=== PATIENT | female | born 1975 | race Caucasian/White ===

== ENCOUNTER → 2019-01-17 12:45 | Outpatient (CLI) | payer OTHER, SELFPAY ==
--- NOTE | 2019-01-17 | DI.MG.S_ITS ---
BILATERAL DIGITAL SCREENING MAMMOGRAM 3D/2D WITH CAD: 01/17/2019 CLINICAL: Routine screening. Family history of breast cancer. Comparison is made to exam dated: 12/14/2017 mammogram - [facility]. The tissue of both breasts is heterogeneously dense. This may lower the sensitivity of mammography. Current study was also evaluated with a Computer Aided Detection (CAD) system. There is a mole marker on the left breast. No significant masses, calcifications, or other findings are seen in either breast. There has been no significant interval change. IMPRESSION: NEGATIVE There is no mammographic evidence of malignancy. A 1 year screening mammogram is recommended. This exam was interpreted at Station ID: [id number]. NOTE: For mammograms, a report in lay terms will be sent to the patient. Approximately 15% of breast malignancies will not be visualized mammographically. In the management of a palpable breast mass, a negative mammogram must not discourage biopsy of a clinically suspicious lesion. Electronically Signed By: Jose Raul freedman/rajinder:01/17/2019 17:22:00 letter sent: Normal Exam ACR BI-RADS Category 1: Negative 3341F
== END ==
DX: Z12.31 Encounter for screening mammogram for malignant neoplasm of breast (principal); Z80.3 Family history of malignant neoplasm of breast
CPT/HCPCS: 77063; 77067

== ENCOUNTER → 2019-05-27 16:30 | Outpatient (CLI) | payer OTHER, SELFPAY ==
[2019-05-27 18:59] LABS: Follicle Stimulating Hormone 7.12 mIU/mL
[2019-05-27 19:14] LABS: Estradiol, Total 129.7 pg/mL
[2019-05-30 17:02] LABS: Testosterone Free 3.1 pg/mL (0.1-6.4); Testosterone Total 72 ng/dL (2-45)
== END ==
DX: N92.1 Excessive and frequent menstruation with irregular cycle (principal)
CPT/HCPCS: 36415; 82670; 83001; 83002; 84402; 84403

== ENCOUNTER → 2020-08-10 11:59 | Outpatient (CLI) | payer OTHER, SELFPAY ==
--- NOTE | 2020-08-10 12:00 | DI.MG.S_ITS ---
BILATERAL DIGITAL SCREENING MAMMOGRAM 3D/2D WITH CAD: 08/10/2020 CLINICAL: Routine screening. Family history of breast cancer. Comparison is made to exams dated: 01/17/2019 mammogram and 12/14/2017 mammogram - [facility]. The tissue of both breasts is heterogeneously dense. This may lower the sensitivity of mammography. Current study was also evaluated with a Computer Aided Detection (CAD) system. There is a mole marker on the left breast. No significant masses, calcifications, or other findings are seen in either breast. There has been no significant interval change. IMPRESSION: NEGATIVE There is no mammographic evidence of malignancy. A 1 year screening mammogram is recommended. This exam was interpreted at Station ID: [id number]. NOTE: For mammograms, a report in lay terms will be sent to the patient. Approximately 15% of breast malignancies will not be visualized mammographically. In the management of a palpable breast mass, a negative mammogram must not discourage biopsy of a clinically suspicious lesion. Electronically Signed By: Po Garcia acr/rajinder:08/10/2020 17:01:38 copy to: Helena Neal letter sent: Normal Exam ACR BI-RADS Category 1: Negative [id number]
== END ==
PROVIDERS: PCP Family Medicine; Referring Provider Family Medicine; Visit Provider Family Medicine
DX: Z12.31 Encounter for screening mammogram for malignant neoplasm of breast (principal); Z80.3 Family history of malignant neoplasm of breast
CPT/HCPCS: 77063; 77067

== ENCOUNTER 2021-11-13 01:24 | Inpatient (IN) | payer SELFPAY ==
[2021-11-13] VITALS (19 sets, daily range): BP systolic 140–188; BP diastolic 73–111; PULSE 89–113; RESP 12–27; TEMP 36.6–37.2; O2SAT 97–100; BMI 20.7
--- NOTE | 2021-11-13 01:38 | DI.RAD.S_ITS ---
PROCEDURE: XR CHEST 1V INDICATIONS: Vomiting blood TECHNIQUE: One view of the chest was acquired. COMPARISON: None. FINDINGS: Surgical changes and devices: None. Lungs and pleura: Lungs are clear. No pleural effusions or pneumothorax. Mediastinum: Mediastinal contours appear normal. Heart size is normal. Bones and chest wall: No suspicious bony lesions. Overlying soft tissues appear unremarkable. IMPRESSION: Normal for age, source of current hematemesis symptoms is not seen. Dictated by: Jim Dominguez M.D. on 11/13/2021 at 1:53 Approved by: Jim Dominguez M.D. on 11/13/2021 at 1:53
[2021-11-13 01:51] LABS: Add Manual Diff / Slide Review NO; Basophils Absolute Auto 0 /uL (0-100); Basophils Percent Auto 0.4 % (0-2); Eosinophils Absolute Auto 0 /uL (0-450); Hematocrit 47.1 % (36-46); Hemoglobin 15.6 g/dL (12.0-16.0); Lymphocytes Absolute Auto 600 /uL (1100-4500); Lymphocytes Percent Auto 9.2 % (25-40); Mean Corpuscular HGB Conc 33.1 % (30-36); Mean Corpuscular Hemoglobin 35.9 PG (26-34); Mean Corpuscular Volume 108.6 fL (80-100); Monocytes Absolute Auto 600 /uL (0-900); Monocytes Percent Auto 8.8 % (3-14); Neutrophils Absolute Auto 5600 /uL (1500-7000); Neutrophils Percent Auto 81.6 % (50-75); Platelet Count 135 X10^3/uL (150-400); Red Blood Cell Count 4.33 X10^6/uL (4.0-5.2); Red Cell Distribution Width 14.6 % (11.6-14.8); White Blood Cell Count 6.9 X10^3/uL (4.5-11.0)
[2021-11-13] MEDS: SODIUM CHLORIDE 0.9% 1,000 ML 1000 ML IV (01:54)
[2021-11-13] MEDS: PANTOPRAZOLE 40 MG VIAL IV ×2 (01:54→08:46)
[2021-11-13] MEDS: ONDANSETRON 4 MG/2 ML INJ IV ×5 (01:55→20:18)
[2021-11-13 02:04] LABS: Alanine Aminotransferase 64 IU/L (<35); Albumin 4.7 g/dL (3.5-5.0); Albumin Globulin Ratio 1.2 (1.0-2.8); Alkaline Phosphatase 117 U/L (38-126); Aspartate Aminotransferase 370 IU/L (14-36); BUN Creatinine Ratio 6.7 (6-22); Bilirubin Total 1.8 mg/dL (0.2-1.3); Blood Urea Nitrogen 4 mg/dL (7-17); Calcium 8.9 mg/dL (8.4-10.2); Carbon Dioxide 12 mmol/L (22-32); Chloride 102 mmol/L (98-107); Estimated Glomerular Filt Rate > 60.0 mL/min (>60); Ethanol (ETOH) < 10 mg/dL; Globulin 3.8 g/dL (1.7-4.1); Glucose 108 mg/dL (70-100); Sodium 135 mmol/L (137-145); Total Protein 8.5 g/dL (6.3-8.2)
--- NOTE | 2021-11-13 02:05 | ED_ITS ---
HPI - Nausea/Vomiting/Diarrhea General Chief complaint: Nausea/Vomiting/Diarrhea Stated complaint: BLOOD IN VOMIT/WEAK/HEART RACING Time Seen by Provider: 11/13/21 01:36 Source: patient Mode of arrival: Wheelchair Limitations: no limitations History of Present Illness HPI Narrative: Patient is a 46-year-old female. Has a history of hypertension but states she does not take any of her medications. Is a msr-ipfbypk-bhkasrplu diabetic. Here for evaluation of just over 12 hours of upper abdominal discomfort and nausea and vomiting. No fevers but is having chills. Is feeling very weak. Having upper abdominal pain. No urinary symptoms. No change in bowel habits. She stated that the vomit did turn into having some blood streaked and then turned into some dark colored. She does have a fairly significant alcohol history. Drinks on a daily basis but did not drink at all yesterday because of the symptoms that brought her to the emergency department. Related Data Home Medications Medication Instructions Recorded Confirmed spironolactone 100 mg tablet 100 mg PO BID 08/11/20 11/02/20 Previous Rx's Medication Instructions Recorded amlodipine 5 mg tablet See Rx Instructions .ROUTE 09/15/20 .COMPLEX #30 tab levonorgestrel-ethinyl estradiol 1 tab PO DAILY #84 tab 09/21/20 0.1 mg-20 mcg tablet (Aviane) metformin 500 mg tablet,extended 500 mg PO DAILY #30 tab 10/01/20 release 24 hr metoprolol succinate 100 mg See Rx Instructions .ROUTE 01/06/21 tablet,extended release 24 hr .COMPLEX #90 tab Allergies Allergy/AdvReac Type Severity Reaction Status Date / Time No Known Drug Allergies Allergy Verified 11/02/20 10:39 Review of Systems Constitutional Constitutional: Reports as per HPI and Reports system reviewed and no additional complaints, except as documented Cardiovascular Cardiovascular: Reports system reviewed and no additional complaints, except as documented Respiratory Respiratory: Reports system reviewed and no additional complaints, except as documented Gastrointestinal Gastrointestinal: Reports as per HPI and Reports system reviewed and no additional complaints, except as documented Genitourinary Genitourinary: Reports system reviewed and no additional complaints, except as documented and Reports as per HPI Musculoskeletal Musculoskeletal: Reports system reviewed and no additional complaints, except as documented Integumentary/Breasts Skin/Breast: Reports system reviewed and no additional complaints, except as documented Hematologic/Lymphatic On Anticoagulants: No Patient History Medical History Acne Hyperlipidemia Infertility Polycystic ovarian syndrome Surgical History Anesthesia Status post delivery (~11/03/13) Status post surgical removal of both fallopian tubes (~2011) Family History Mother Hyperlipidemia Hypertension Father Cancer Social History Smoking Status: Current every day smoker Smoking Status: Current every day smoker alcohol intake frequency: 3 or more drinks per day Substance Use Type: does not use Exam Initial Vital Signs Initial Vital Signs: Vital Signs Temperature 98.1 F 11/13/21 01:30 Pulse Rate 103 H 11/13/21 01:30 Respiratory Rate 18 11/13/21 01:30 Blood Pressure 188/111 H 11/13/21 01:30 Pulse Oximetry 99 11/13/21 01:30 HENMT Head: normal to inspection and normocephalic Resp Effort & Inspection: normal respiratory effort Auscultation: clear to auscultation bilaterally Cardio Rate: regular rate Rhythm: regular rhythm GI Inspection: normal to inspection and non-distended Palpation: soft, No firm and tender (Epigastric, left upper quadrant) Skin General: no rashes or lesions noted Extrem General: normal to inspection and capillary refill normal Course Orders Ordered: ED Orders 11/13/21 01:38 XR chest 1V Stat 11/13/21 01:40 Complete Blood Count AUTO DIFF Stat Comprehensive Metabolic Panel Stat Ethanol (ETOH) Stat Lipase Stat 11/13/21 01:51 Type and Screen Stat 11/13/21 02:35 COVID19 -Nasal swab/Pre-Proc Stat Discontinued Medications Sodium Chloride (Normal Saline 0.9%) 1,000 mls @ 1,000 mls/hr IV BOLUS ONE Stop: 11/13/21 02:35 Last Admin: 11/13/21 01:54 Dose: 1,000 mls/hr Documented by: NAYE Ondansetron HCl (Ondansetron 4 Mg/2 Ml Inj) 4 mg IV NOW ONE Stop: 11/13/21 01:37 Last Admin: 11/13/21 01:55 Dose: 4 mg Documented by: NAYE Pantoprazole Sodium (Pantoprazole 40 Mg Vial) 40 mg IV NOW ONE Stop: 11/13/21 01:37 Last Admin: 11/13/21 01:54 Dose: 40 mg Documented by: NAYE Vital Signs Vital signs: Vital Signs - 8 hr 11/13/21 01:30 Temperature 98.1 F Pulse Rate 103 H Respiratory Rate 18 Blood Pressure 188/111 H Pulse Oximetry 99 MDM - Nausea/Vomiting/Diarrhea Lab Data Attestation: I reviewed the patient's lab results. Result diagrams: 11/13/21 01:40 11/13/21 01:40 Labs: Lab Results 11/13/21 11/13/21 11/13/21 Range/Units 01:40 01:40 01:51 WBC 6.9 (4.5-11.0) X10^3/uL RBC 4.33 (4.0-5.2) X10^6/uL Hgb 15.6 (12.0-16.0) g/dL Hct 47.1 H (36-46) % MCV 108.6 H (80-100) fL MCH 35.9 H (26-34) PG MCHC 33.1 (30-36) % RDW 14.6 (11.6-14.8) % Plt Count 135 L (150-400) X10^3/uL Neut % (Auto) 81.6 H (50-75) % Lymph % (Auto) 9.2 L (25-40) % [place] % (Auto) 8.8 (3-14) % Eos % (Auto) 0.0 L (2-4) % Baso % (Auto) 0.4 (0-2) % Neut # (Auto) 5600 (9332-4913) /uL Lymph # (Auto) 600 L (4897-6056) /uL [place] # (Auto) 600 (0-900) /uL Eos # (Auto) 0 (0-450) /uL Baso # (Auto) 0 (0-100) /uL Sodium 135 L (137-145) mmol/L Potassium 4.7 (3.4-5.1) mmol/L Chloride 102 (98-107) mmol/L Carbon Dioxide 12 L (22-32) mmol/L BUN 4 L (7-17) mg/dL Creatinine 0.60 (0.52-1.04) mg/dL Estimated GFR > 60.0 (>60) mL/min BUN/Creatinine Ratio 6.7 (6-22) Glucose 108 H (70-100) mg/dL Calcium 8.9 (8.4-10.2) mg/dL Total Bilirubin 1.8 H (0.2-1.3) mg/dL AST 370 H (14-36) IU/L ALT 64 H (<35) IU/L Alkaline Phosphatase 117 (38-126) U/L Total Protein 8.5 H (6.3-8.2) g/dL Albumin 4.7 (3.5-5.0) g/dL Globulin 3.8 (1.7-4.1) g/dL Albumin/Globulin Ratio 1.2 (1.0-2.8) Lipase 4463 H (23-300) U/L Ethyl Alcohol < 10 ( - 10) mg/dL Blood Type O Positive Antibody Screen Negative [facility] Narrative Medical decision making narrative: Patient is nontoxic appearing. Is not tachycardic but is hypertensive. Alcohol level is negative. Does have an elevated lipase consistent with pancreatitis. She also has elevation in her LFTs but her discomfort is epigastric and left upper quadrant. Higher suspicion that the elevation in her LFTs related to al cohol. I suspect that the blood streaked sputum and dark colored sputum that she had is most likely related to gastritis/esophagitis. Patient was given Protonix. Started on fluids. Discussed the case with FRANCISCO Solis the night hospitalist who will admit for further evaluation and treatment. Discussed the need for admission secondary to pancreatitis with the patient and she expressed understanding and agreement. Discharge Plan Departure Patient Disposition: Admitted As Inpatient Clinical Impression: Acute pancreatitis, Nausea and vomiting Admit Date/Time: 11/13/21 02:45
[2021-11-13 02:07] LABS: Potassium 4.7 mmol/L (3.4-5.1)
[2021-11-13 02:18] LABS: HEMOLYSIS 77 (0-50); Lipase 4463 U/L (23-300)
[2021-11-13] MEDS: MAG HYDROX/ALUMINUM/SIMETH SUS 20 ML, LIDOCAINE VISCOUS 2% 15 ML PO ×2 (03:04→05:42)
--- NOTE | 2021-11-13 03:07 | DI.US.S_ITS ---
PROCEDURE: US ABDOMEN COMPLETE INDICATIONS: ACUTE PANCREATITIS TECHNIQUE: Real-time scanning was performed of the abdominal and retroperitoneal organs, with image documentation. COMPARISON: None. FINDINGS: Liver: Diffuse increased echogenicity is consistent with fatty change or hepatocellular disease. Gallbladder: No stones. No gallbladder wall thickening or pain on examination. Biliary ducts: Intrahepatic bile ducts are non-dilated. Extrahepatic bile duct caliber measures 5.1 mm. Normal is 6-7 mm or less in diameter, or 10 mm or less post-cholecystectomy. Pancreas: Visualized portions of the pancreas appear enlarged, possibly edematous, consistent with a clinical diagnosis of pancreatitis. Spleen: Spleen is normal in size and homogeneous in echotexture. Kidneys: Kidneys are normal in size and echotexture. Right kidney measures 12.0 cm long; left kidney measures 11.9 cm long. No hydronephrosis or nephrolithiasis. No solid masses. Aorta: Visualized aorta is normal in caliber at less than 3 cm. Iliacs: Proximal common iliac arteries are normal in caliber at less than 2.5 cm. IVC: Intrahepatic inferior vena cava is patent. Miscellaneous: Small amount of free fluid. IMPRESSION: 1. Coarsened echogenicity of the liver is consistent with either diffuse hepatic steatosis or hepatocellular disease. 2. No gallstone disease noted. 3. Probable edematous pancreas. 4. Small amount of ascites. Dictated by: Efren Hylton M.D. on 11/13/2021 at 15:13 Approved by: Efren Hylton M.D. on 11/13/2021 at 15:16
[2021-11-13 03:26] LABS: COVID19 -Nasal RAPID Negative (Negative)
[2021-11-13 03:36] LABS: Amylase 278 U/L (30-110); Lactate Dehydrogenase 876 U/L (313-618)
[2021-11-13 03:37] LABS: Magnesium 1.4 mg/dL (1.6-2.3)
--- NOTE | 2021-11-13 04:03 | PM.HP.1 ---
History of Present Illness History of Present Illness Date Patient Seen: 11/13/21 Time Patient Seen: 03:21 Chief complaint: BLOOD IN VOMIT/WEAK/HEART RACING Narrative: Harriet Smith is a 46-year-old female with a history of hypertension but states she does not take any of her medications, rte-rfdvzkl-lhfnxqfcn diabetic, and etoh abuse who presented to ED with a chief complaint of over 12 hours of upper epigastric/abdominal discomfort, nausea, vomiting (gross coffee grounds emesis/picture provided), and dark tarry stool x1.? No fevers but positive chills, epigatric pain, nausea, and weakness.?Though symptoms are improved from ED treatment. Patient denies urinary symptoms, chest pain, shortness of breath, numbness, tingling, headache, changes in vision, head injury, falls, recent illness, injury, or trauma. Patient also endorses a significant alcohol history (review of 2019 [facility] visit documented 12-15 shots per day and attempts at cutting back) admits to likely more this amount of vodka, shots QDay 15-20shots. Patient denies history of GI bleed. Patient resting in bed, chronically ill appearing. Upon admit patient's vitals demonstrated afebrile 98.1 temp, hypertensive urgency BP 188/111, tachycardic HR 103, R 18, O2 saturation 99% on room air. Patient's hematocrit 47.1, platelets 135. Sodium 135, bicarb 12, BUN 4, glucose 108. Mag 1.4, T bili 1.8, AST 370, ALT 64, total protein 8.5, LacD 876, amylase 278, lipase 4463, ETOH is negative. Patient typed & screened: O-positive. Chest x-ray was negative for any a cardiopulmonary processes. Patient being admitted for acute pancreatitis with mild thrombocytopenia, and alcohol abuse. Patient History Medical History (Updated 11/13/21 @ 04:13 by JOSE Rosen) Acne Alcohol abuse Hyperlipidemia Infertility Polycystic ovarian syndrome Surgical History Anesthesia Status post delivery (~11/03/13) Status post surgical removal of both fallopian tubes (~2011) Family & Social History Family History Mother Hyperlipidemia Hypertension Father Cancer Safety & Behavioral: Feels Safe in Current Yes Environment Tobacco & Substance use: Smoking Status Current every day smoker alcohol intake frequency 3 or more drinks per day Substance Use Type does not use Meds Home Medications and Allergies Allergies Allergy/AdvReac Type Severity Reaction Status Date / Time No Known Drug Allergies Allergy Verified 11/02/20 10:39 Review of Systems Review of Systems Narrative: All 12 point systems reviewed with the patient and are negative except otherwise documented. Exam Vital Signs (past 8 hours): - 11/13/21 01:30 11/13/21 01:57 11/13/21 01:59 Temperature 98.1 F Pulse Rate 103 H 98 H 109 H Respiratory Rate 18 27 H Blood Pressure 188/111 H 170/97 H Pulse Oximetry 99 100 100 11/13/21 02:00 11/13/21 02:30 11/13/21 03:00 Temperature Pulse Rate 113 H 104 H 96 H Respiratory Rate 26 H 22 23 Blood Pressure 179/94 H 147/83 H 165/79 H Pulse Oximetry 100 100 100 Oxygen Delivery Method Room Air Narrative Exam Narrative: General: Patient is a well-developed, well-nourished, chronically ill appearing female, in no acute distress at this time. HEENT: Normocephalic, atraumatic, extraocular muscles intact, oral pharynx is clear and mucous membranes are dry. Neck is supple and symmetric, trachea is midline, no adenopathy, no thyroid enlargement, nontender, no masses palpated. Negative for JVD Chest: Normal AP diameter and contour without kyphoscoliosis, no nasal flaring, retractions, or tachypneic labored breathing. Lungs: Auscultation of all lung sykes are clear without adventitious sounds, wheezes, rhonchi, or rales. Cardio: S1 & S2 with regular rate and rhythm without murmur, rubs, or gallops, no carotid bruit, no cardiac pulsations present. Abdomen: Soft, tender to epigatric w/palpation. Bowel sounds are present in all 4 quadrants without guarding or rebound, no CVA tenderness.Negative Hernández rosario, [place] or [place] signs. Musculoskeletal: Muscle strength and tone are equal within normal limits, no deformity, crepitus, effusions, cyanosis, clubbing or edema present. Full range of motion intact radial and pedal pulses are normal. Skin: Warm dry and intact without rashes, ulcerations or petechiae, skin: slight diffuse icterus in appearance. Neuro: Alert and orientated x3, strength is +5/5 in all extremities, sensation to touch intact, no gross deficits noted of cranial nerves. Psych: Patient has a well-kept appearance, appropriate affect, mental status attitude thought context and judgment are appropriate for age. Objective Labs Result Diagrams: 11/13/21 01:40 11/13/21 01:40 Labs: Laboratory Results - last 24 hr 11/13/21 11/13/21 11/13/21 01:40 01:40 01:40 WBC 6.9 RBC 4.33 Hgb 15.6 Hct 47.1 H MCV 108.6 H MCH 35.9 H MCHC 33.1 RDW 14.6 Plt Count 135 L Neut % (Auto) 81.6 H Lymph % (Auto) 9.2 L [place] % (Auto) 8.8 Eos % (Auto) 0.0 L Baso % (Auto) 0.4 Neut # (Auto) 5600 Lymph # (Auto) 600 L [place] # (Auto) 600 Eos # (Auto) 0 Baso # (Auto) 0 Sodium 135 L Potassium 4.7 Chloride 102 Carbon Dioxide 12 L BUN 4 L Creatinine 0.60 Estimated GFR > 60.0 BUN/Creatinine Ratio 6.7 Glucose 108 H Calcium 8.9 Magnesium Total Bilirubin 1.8 H AST 370 H ALT 64 H Alkaline Phosphatase 117 Lactate Dehydrogenase 876 H Total Protein 8.5 H Albumin 4.7 Globulin 3.8 Albumin/Globulin Ratio 1.2 Amylase 278 H Lipase 4463 H Ethyl Alcohol < 10 SARS-CoV-2 (PCR) Blood Type Antibody Screen 11/13/21 11/13/21 11/13/21 01:40 01:51 02:35 WBC RBC Hgb Hct MCV MCH MCHC RDW Plt Count Neut % (Auto) Lymph % (Auto) [place] % (Auto) Eos % (Auto) Baso % (Auto) Neut # (Auto) Lymph # (Auto) [place] # (Auto) Eos # (Auto) Baso # (Auto) Sodium Potassium Chloride Carbon Dioxide BUN Creatinine Estimated GFR BUN/Creatinine Ratio Glucose Calcium Magnesium 1.4 L Total Bilirubin AST ALT Alkaline Phosphatase Lactate Dehydrogenase Total Protein Albumin Globulin Albumin/Globulin Ratio Amylase Lipase Ethyl Alcohol SARS-CoV-2 (PCR) Negative Blood Type O Positive Antibody Screen Negative Assessment & Plan Assessment & Plan narrative: Harriet Smith is a 46-year-old female with a history of hypertension but states she does not take any of her medications, vac-endyfar-abvttwfgp diabetic, and etoh abuse who presented to ED with a chief complaint of over 12 hours of upper abdominal discomfort and nausea and vomiting. Patient admitted acute pancreatitis, hypertensive urgency, thrombocytopenia and alcohol abuse. Patient being admitted for acute pancreatitis with mild thrombocyto 1. Acute pancreatitis, likely secondary to alcohol abuse, with GI bleed, acute, with mild thrombocytopenia, acute, present on admission -Reviewed Picture image of gross coffee-ground emesis and reported dark black tarry stool x1-possible GI bleed (suspect Leslee-Ponce, esophageal varices and or portal hypertension) platelets 135, total bili 1.8, AST 370, ALT 64, lipase 4463. -monitor patient for complications of fluid overload, variceal hemorrhage, ascites, spontaneous bacterial peritonitis, hepatocellular carcinoma, hepatic renal syndrome, or hepatopulmonary syndrome, septic shock, Leslee-Ponce syndrome, cholecystitis, cirrhosis hepatitis. -Rule out upper GI &/or Lower GI Bleeding, duodenitis, esophageal varices, portal hypertensive gastropathy, angiodysplasia, gastric reflux, gastritis, peptic ulcer disease, aerophagia, Leslee-Ponce tear, and or gastric cancer. -NPO -antiemetics and pain management -If patient begins vomiting -place NG tube -patient typed and crossed: O-positive -Consult Dr. Wick general surgery ordered -procalcitonin, hepatitis panel, CRP, amylase, lac D, Mag, Lipid panel, A1C: ordered -H/H & BUN Q8Hrs -abdominal ultrasound ordered for today. -Bed rest w/Bedside commode -Protonix 40 mg q.day IV -hold p.o. medication -Strict I&O, urinary output goal > 30 cc/HR -admitted under alcohol withdrawal precautions, aspiration, Fall, and seizure precautions -phenobarbital 130 mg IV loading dose, may repeat once if withdrawal symptoms continue. -start oral phenobarbital titration down tomorrow Day #1-60 mg p.o. t.i.d.,#2-60 mg p.o. b.i.d., #3 60 mg p.o. q.day -dietary consult placed regarding alcohol -patient education provided regarding alcohol withdrawal & risks, and recommendations regarding withdrawal with the assistance of medical reimbursement manager. Patient handout information to be provided. -if patient demonstrates altered mental status will consider head CT as patient is high risk of falls. -Recommend pt be referred on D/C cardio for evaluation. 2. Hypertensive urgency in the setting of uncontrolled essential hypertension (possible portal hypertension), acute on chronic, present on admission Admitting BP 188/111 -labetalol 10 mg as needed for SBP> 160 or DBP> 99 or HR> 110 for greater than 30 minute -Patient education & handout, Blood Pressure log to be provided regarding uncontrolled hypertension. -recommend patient is started on an DARIANA-inhibitor (medication handout) and follow-up with PCP 2 weeks 3. Tobacco abuse, acute on chronic, present on admission -nicotine patch to be provided 4. Malnourished likely secondary to alcohol abuse, acute on chronic, present on admission -dietary consult ordered Code status:Full Surrogate decision maker: Spouse COVID PCR:Negative COVID vaccination: Unknown DVT/VTE prophylaxis:Medication Held, SCD's only Disposition: Admit to acute care, expected length of stay greater than 3 midnights. I have utilized all available immediate resources to obtain, update, or review the patient's current medications. I confirmed that the patient's advanced care plan is present, Code status is documented and/or surrogate decision maker is listed in the patient's medical record. Time Spent With Patient Critical Care time: I spent a total of [] minutes of critical care time on this patient's care today; this time is exclusive of procedural time.
[2021-11-13] MEDS: LACTATED RINGERS 1,000 ML 100 ML IV (04:24)
[2021-11-13 05:45] LABS: Add Manual Diff / Slide Review NO; Basophils Absolute Auto 0 /uL (0-100); Basophils Percent Auto 0.3 % (0-2); Eosinophils Absolute Auto 0 /uL (0-450); Hematocrit 43.6 % (36-46); Hemoglobin 14.7 g/dL (12.0-16.0); Lymphocytes Absolute Auto 500 /uL (1100-4500); Lymphocytes Percent Auto 10.1 % (25-40); Mean Corpuscular HGB Conc 33.8 % (30-36); Mean Corpuscular Hemoglobin 36.3 PG (26-34); Mean Corpuscular Volume 107.4 fL (80-100); Monocytes Absolute Auto 500 /uL (0-900); Monocytes Percent Auto 9.1 % (3-14); Neutrophils Absolute Auto 4300 /uL (1500-7000); Neutrophils Percent Auto 80.5 % (50-75); Platelet Count 121 X10^3/uL (150-400); Red Blood Cell Count 4.06 X10^6/uL (4.0-5.2); Red Cell Distribution Width 14.5 % (11.6-14.8); White Blood Cell Count 5.3 X10^3/uL (4.5-11.0)
[2021-11-13 05:48] LABS: INR 1.3 (0.9-1.3); Prothrombin Time 14.2 SECONDS (10.1-12.7)
[2021-11-13 05:58] LABS: Cholesterol 222 mg/dL (140-199); Triglycerides 148 mg/dL (35-150)
[2021-11-13 05:59] LABS: Alanine Aminotransferase 57 IU/L (<35); Albumin 3.9 g/dL (3.5-5.0); Albumin Globulin Ratio 1.2 (1.0-2.8); Alkaline Phosphatase 99 U/L (38-126); Aspartate Aminotransferase 290 IU/L (14-36); BUN Creatinine Ratio 8.9 (6-22); Bilirubin Total 1.7 mg/dL (0.2-1.3); Blood Urea Nitrogen 5 mg/dL (7-17); Calcium 8.3 mg/dL (8.4-10.2); Carbon Dioxide 15 mmol/L (22-32); Chloride 104 mmol/L (98-107); Estimated Glomerular Filt Rate > 60.0 mL/min (>60); Globulin 3.2 g/dL (1.7-4.1); Glucose 129 mg/dL (70-100); HEMOLYSIS 32 (0-50); Hemoglobin A1C% w Est Avg Glu 4.9 % (4.0-6.0); Potassium 4.7 mmol/L (3.4-5.1); Sodium 134 mmol/L (137-145); Total Protein 7.1 g/dL (6.3-8.2)
[2021-11-13 06:04] LABS: HEMOLYSIS < 15 (0-50); Iron 254 ug/dL (37-170)
[2021-11-13 06:08] LABS: HDL Cholesterol 103 mg/dL (40-60); LDL Cholesterol Calculated 89 mg/dL (<100)
[2021-11-13 06:11] LABS: Troponin I < 0.012 ng/mL (0.01-0.034)
[2021-11-13 06:15] LABS: Total Iron Binding Capacity 270 ug/dL (265-497); Transferrin 212 mg/dL (206-381)
[2021-11-13 06:17] LABS: Procalcitonin 0.42 ng/mL (<0.5)
[2021-11-13 06:18] LABS: Lipase 4809 U/L (23-300); NT-proBNP (BNP-Adult 18+) 389 pg/mL (<125)
[2021-11-13 06:19] LABS: Percent Iron Saturation 94 % (15-50)
--- NOTE | 2021-11-13 06:36 | PC.NURSE ---
Pt admitted from ER via stretcher. ambulated to BR with SBA and voided adequate amount of dark kamran UOP, sample sent to lab per order. pt is somewhat withdrawn and presents with flat affect. pt stated , I am just so tired and I feel drained. Denied c/o pain except tenderness with palpation to LUQ. C/O of nausea, Zofran administered and effective. GI cocktail also administered. Pt refused to remove her clothing and allowed only minimal skin assessment. Patient allowed to rest at this time.
[2021-11-13] MEDS: PHENobarbital 130 MG/ML VIAL IV (06:59)
[2021-11-13] MEDS: MAGNESIUM SULFATE 2 GM/50 ML PIGGYBACK IV (07:00)
[2021-11-13] MEDS: SODIUM CHLORIDE 0.9% 1,000 ML 84 ML IV ×2 (07:05→20:23)
[2021-11-13] MEDS: MORPHINE 2 MG/ML INJ IV ×3 (08:43→20:19)
[2021-11-13] MEDS: THIAMINE 100 MG in SODIUM CHLORIDE 0.9% 100 ML 404 ML IV (08:46)
[2021-11-13 13:04] LABS: Hematocrit 43.3 % (36-46); Hemoglobin 14.6 g/dL (12.0-16.0)
[2021-11-13 13:15] LABS: Blood Urea Nitrogen 5 mg/dL (7-17)
[2021-11-13] MEDS: PHENobarbital 65 MG/ML VIAL 60 MG IV ×2 (14:11→20:19)
[2021-11-13] MEDS: NICOTINE 14 PATCH 14 MG TOP (14:12)
[2021-11-13] MEDS: LABETALOL 20 MG/4 ML SYRINGE 10 MG IV (15:12)
[2021-11-13 21:29] LABS: Blood Urea Nitrogen 4 mg/dL (7-17)
[2021-11-14] VITALS (9 sets, daily range): BP systolic 136–158; BP diastolic 71–102; PULSE 88–106; RESP 14–20; TEMP 36.6–37.3; O2SAT 95–100
[2021-11-14] MEDS: ONDANSETRON 4 MG/2 ML INJ IV ×3 (00:33→09:30)
[2021-11-14] MEDS: MORPHINE 2 MG/ML INJ IV ×2 (00:52→04:56)
[2021-11-14 05:57] LABS: Add Manual Diff / Slide Review NO; Basophils Absolute Auto 0 /uL (0-100); Basophils Percent Auto 0.1 % (0-2); Eosinophils Absolute Auto 0 /uL (0-450); Eosinophils Percent Auto 0.6 % (2-4); Hematocrit 39.9 % (36-46); Hemoglobin 13.5 g/dL (12.0-16.0); Lymphocytes Absolute Auto 700 /uL (1100-4500); Lymphocytes Percent Auto 13.8 % (25-40); Mean Corpuscular HGB Conc 33.7 % (30-36); Mean Corpuscular Hemoglobin 35.7 PG (26-34); Monocytes Absolute Auto 400 /uL (0-900); Monocytes Percent Auto 7.7 % (3-14); Neutrophils Absolute Auto 4000 /uL (1500-7000); Neutrophils Percent Auto 77.8 % (50-75); Platelet Count 86 X10^3/uL (150-400); Red Blood Cell Count 3.77 X10^6/uL (4.0-5.2); Red Cell Distribution Width 14.6 % (11.6-14.8); White Blood Cell Count 5.1 X10^3/uL (4.5-11.0)
--- NOTE | 2021-11-14 05:57 | PC.NURSE ---
alert, oriented. voices needs. SBA-independant w/ mobility. tolerating clear liquid diet. NS@ 100/hour. h/h 14/41.0 Tele SR/ST- 99. CIWA 3, phenobarbital effective. reported ABD/back pain several times thru the NOC, prn morphine given w/ good effect. tolerating RA, spo2 100%. call light w/in reach.
[2021-11-14 06:04] LABS: Alanine Aminotransferase 40 IU/L (<35); Albumin 2.8 g/dL (3.5-5.0); Alkaline Phosphatase 82 U/L (38-126); Aspartate Aminotransferase 148 IU/L (14-36); BUN Creatinine Ratio 7.1 (6-22); Blood Urea Nitrogen 3 mg/dL (7-17); Calcium 7.2 mg/dL (8.4-10.2); Carbon Dioxide 22 mmol/L (22-32); Chloride 102 mmol/L (98-107); Estimated Glomerular Filt Rate > 60.0 mL/min (>60); Globulin 2.8 g/dL (1.7-4.1); Glucose 105 mg/dL (70-100); HEMOLYSIS < 15 (0-50); Potassium 3.4 mmol/L (3.4-5.1); Sodium 131 mmol/L (137-145); Total Protein 5.6 g/dL (6.3-8.2)
[2021-11-14] MEDS: SODIUM CHLORIDE 0.9% 1,000 ML 84 ML IV (09:29)
[2021-11-14] MEDS: MULTIVITAMIN 1 TABLET 1 TAB PO (09:30)
[2021-11-14] MEDS: FOLIC ACID 1 MG TABLET PO (09:30)
[2021-11-14] MEDS: NICOTINE 14 PATCH 14 MG TOP (09:30)
[2021-11-14] MEDS: PHENobarbitaL 32.4 MG TABLET 60 MG PO (09:30)
[2021-11-14] MEDS: PANTOPRAZOLE 40 MG VIAL IV (09:31)
[2021-11-14 10:37] LABS: HBsAg Screen Negative (Negative); Hepatitis A Antibody IgM Negative (Negative); Hepatitis B Core Antibody IgM Negative (Negative); Hepatitis C Antibody 0.1 s/co ratio (0.0-0.9)
[2021-11-14] MEDS: CALCIUM CARBONATE 500 MG TAB PO (11:17)
[2021-11-14] MEDS: THIAMINE 100 MG in SODIUM CHLORIDE 0.9% 100 ML 404 ML IV (11:17)
--- NOTE | 2021-11-14 13:33 | P.DS_ITS ---
History of Present Illness History of Present Illness Date Patient Seen: 11/14/21 Time Patient Seen: 13:33 Chief complaint: BLOOD IN VOMIT/WEAK/HEART RACING Narrative: Per Rylee Solis, IUSS ANALYST-BC: Harriet Smith is a 46-year-old female with a history of hypertension but states she does not take any of her medications, [id number] diabetic, and etoh abuse who presented to ED with a chief complaint of over 12 hours of upper epigastric/abdominal discomfort, nausea, vomiting (gross coffee grounds emesis/picture provided), and dark tarry stool x1.? No fevers but positive chills, epigatric pain, nausea, and weakness.?Though symptoms are improved from ED treatment.? Patient denies urinary symptoms, chest pain, shortness of breath, numbness, tingling, headache, changes in vision, head injury, falls, recent illness, injury, or trauma.? Patient also endorses a significant alcohol history (review of 2020 [facility] visit documented 12-15 shots per day and attempts at cutting back) admits to likely more this amount of vodka, shots QDay 15-20shots.? Patient denies history of GI bleed. Patient resting in bed, chronic ally ill appearing. Upon admit patient's vitals demonstrated afebrile 98.1 temp, hypertensive urgen cy BP 188/111, tachycardic HR 103, R 18, O2 saturation 99% on room air.? Patient's hematocrit 47.1, platelets 135.? Sodium 135, bicarb 12, BUN 4, glucose 108.? Mag 1.4, T bili 1.8, AST 370, ALT 64, total protein 8.5, LacD 876, amylase 278, lipase 4463, ETOH is negative. Patient typed & screened: O-positive.? Chest x-ray was negative for any a cardiopulmonary processes.? Patient being admitted for acute pancreatitis with mild thrombocytopenia, and alcohol abuse. Discharge Providers Provider Date of admission: 11/13/21 02:45 Discharge Date: 11/14/21 Primary care physician: Ramiro Cardona MD Consults: 11/13/21 03:08 Consult to Dietitian, Adult Routine Comment: Reason For Exam: BMI 20.7 11/13/21 03:09 Consult to General Surgery Routine Comment: Consulting Provider: Declan Wick Reason for consultation: Acute Pancreatits Has provider been notified: No 11/13/21 03:10 Consult to Dietitian, Adult Routine Comment: Reason For Exam: ETOH w/d Discharge provider: Catracho Hathaway DO Summary Hospital Course Discharge Diagnosis: 1. Acute pancreatitis, secondary to alcohol abuse and subsequent alcohol withdrawal after admission. 2. UGI bleed, acute 3. Thrombocytopenia, acute 4. Alcoholic hepatitis, improved. 5. Hypertensive urgency in the setting of uncontrolled essential hypertension , acute on chronic, present on admission 6. Tobacco abuse, acute on chronic, present on admission Hospital Course: Harriet Smith is a 46-year-old female with a history of hypertension but states she does not take any of her medications, kfc-dbhlcgc-[id number] diabetic, and etoh abuse who presented to ED with a chief complaint of over 12 hours of upper abdominal discomfort and nausea and vomiting.? She was admitted for acute pancreatitis with lipase of over 4000. Her diet was quickly advanced and the following day she was tolerating a low-fat diet without significant abdominal pain. She had significant elevated transaminase levels likely due to alcohol, which did decrease over the course of her admission. She was noted to have some melanotic stools though she does have a history of gastritis. Her H&H remained stable around 14 without further evidence of active bleeding. She was started on omeprazole as a precaution and should continue this for 14 days. She was also hypertensive over the course of admission, likely more elevated in the setting of probable alcohol withdrawal. For her alcohol withdrawal she was a treated with the phenobarbital taper which she did well on, and on the day of discharge she had no evidence continued alcohol withdrawal symptoms. She did not wish for any outpatient resources at this time. Her blood pressure did remain slightly elevated and she was started on 5 mg of amlodipine at discharge. I recommended that she take a blood pressure log at home and continue to follow-up with her primary care provider for monitoring of her blood pressures as well as possible future medication adjustment. I do recommend a repeat CBC as an outpatient in 1-2 weeks to recheck her thrombocytopenia which at this time is believed to be due to her alcoholism, as well as a recheck of her hemoglobin and hematocrit as well given treatments. Exam Vital Signs (past 8 hours): - 11/14/21 07:25 11/14/21 07:46 11/14/21 11:00 Temperature 97.9 F 99.2 F Pulse Rate 92 H 106 H Respiratory Rate 20 20 Blood Pressure 142/99 H 158/102 H Pulse Oximetry 96 100 100 11/14/21 12:47 Temperature Pulse Rate Respiratory Rate Blood Pressure Pulse Oximetry 95 Oxygen Delivery Method Room Air Oxygen Flow Rate 0 Narrative Exam Narrative: General:? Patient is well developed and well nourished, in no distress at this time. HEENT:? Normocephalic, atraumatic, extraocular muscles intact, oral pharynx is clear and mucous membranes are moist. Neck: supple and symmetric, trachea is midline, no cervical adenopathy. Negative for JVD Chest:? Normal AP diameter and contour without kyphoscoliosis, no tachypnea, equal chest rise bilaterally. Lungs:? CTA b/l no wheezing rhonchi or rales. Cardio:?RRR no m/r/g. Abdomen: S NT ND. No CVA tenderness. Musculoskeletal:? Muscle strength and tone are equal within normal limits, no deformity. Extremities: No edema or joint effusions. No cyanosis or clubbing. Skin:? Pale,? Warm to touch,dry and intact without rashes, ulcerations or petechiae.? Neuro:? Alert and orientated x3,? sensation to touch intact in all extremities, no gross deficits noted of cranial nerves. Psych:? Patient has a well-kept appearance, appropriate affect, mental status attitude thought context and judgment are appropriate for age. Objective Labs Result Diagrams: 11/14/21 05:37 11/14/21 05:37 Labs: Laboratory Results - last 24 hr 11/13/21 11/13/21 11/13/21 05:25 21:07 21:07 WBC RBC Hgb 14.0 Hct 41.0 MCV MCH MCHC RDW Plt Count Neut % (Auto) Lymph % (Auto) [place] % (Auto) Eos % (Auto) Baso % (Auto) Neut # (Auto) Lymph # (Auto) [place] # (Auto) Eos # (Auto) Baso # (Auto) Sodium Potassium Chloride Carbon Dioxide BUN 4 L Creatinine Estimated GFR BUN/Creatinine Ratio Glucose Calcium Total Bilirubin AST ALT Alkaline Phosphatase Total Protein Albumin Globulin Albumin/Globulin Ratio Hepatitis A IgM Ab Negative Hep Bs Antigen Negative Hep B Core IgM Ab Negative Hepatitis C Antibody 0.1 Hep C Ab Signal/Cutoff Comment 11/14/21 11/14/21 05:37 05:37 WBC 5.1 RBC 3.77 L Hgb 13.5 Hct 39.9 MCV 106.0 H MCH 35.7 H MCHC 33.7 RDW 14.6 Plt Count 86 L Neut % (Auto) 77.8 H Lymph % (Auto) 13.8 L [place] % (Auto) 7.7 Eos % (Auto) 0.6 L Baso % (Auto) 0.1 Neut # (Auto) 4000 Lymph # (Auto) 700 L [place] # (Auto) 400 Eos # (Auto) 0 Baso # (Auto) 0 Sodium 131 L Potassium 3.4 D Chloride 102 Carbon Dioxide 22 BUN 3 L Creatinine 0.42 L Estimated GFR > 60.0 BUN/Creatinine Ratio 7.1 Glucose 105 H Calcium 7.2 L Total Bilirubin 1.0 AST 148 H ALT 40 H Alkaline Phosphatase 82 Total Protein 5.6 L Albumin 2.8 L Globulin 2.8 Albumin/Globulin Ratio 1.0 Hepatitis A IgM Ab Hep Bs Antigen Hep B Core IgM Ab Hepatitis C Antibody Hep C Ab Signal/Cutoff [facility] Medical History Acne Alcohol abuse Hyperlipidemia Infertility Polycystic ovarian syndrome Surgical History Anesthesia Status post delivery (~11/03/13) Status post surgical removal of both fallopian tubes (~2011) Family History Mother Hyperlipidemia Hypertension Father Cancer Social History household members: spouse and children Smoking Status: Current every day smoker alcohol intake: current Discharge Plan Discharge Plan Patient Disposition: Home Provider Discharge Comment: You were admitted to the hospital with alcoholic pancreatitis. Improved with cessation and bowel rest. Would avoid alcohol in the future as this will likely happen again if you drink in the future. You are being prescribed a new BP medication. Please follow up with your PCP within 2-4 weeks and keep a log of your BP at home. For probable gastritis you are also recommended to take pantoprazole for 14 days. Discharge orders & Medications Prescriptions: New amlodipine 5 mg tablet 5 mg PO DAILY 30 Days Qty: 30 0RF pantoprazole 20 mg tablet,delayed release (DR/EC) 20 mg PO DAILY 14 Days Qty: 14 0RF Medication counseling provided by Pharmacist: Yes Follow up/Referrals: Ramiro Cardona MD [Primary Care Provider] - Diet/Activity/Treatments Diet: Diet as Tolerated and Low-fat Activity: As tolerated Visit Report/Discharge Packet Instructions: Acute Pancreatitis, DI for Pancreatitis Discharge Data Primary Care Provider: Ramiro Cardona Quality VTE Deep Vein Thrombosis/Pulmonary Embolism Present on Admission: No
--- NOTE | 2021-11-14 14:13 | DIET.CONS ---
Dietary Consultation Note Admission Date: 11/13/2021 02:45 Assessment: 46y F admitted for blood in vomit in etoh withdrawl and acute pancreatitis referred to nutrition for same. Pt reports to provider daily etoh consumption of 15-20 et[address] of [address] RD visited pt at bedside after lunch. Pt reports tolerating chicken breast and rice well though only ate ~25%. Pt stays with her mother who can do grocery shopping. Pt considering starting Ensure supplement. Ht: 175.26 cm Wt: 56.3 kg BMI: 18.3 Last BM: 11/11/21 (11/13/21 03:21) MNA: 11 Kvng Score: 21 Diet: 11/14/21 Lunch Low/restricted Fat Diet Diet Modifications: Dietary Fat allowed: 25 grams (pancreatitis) Nutrition Percent Meal Consumed 10% 11/14/21 14:12 Percent Meal Consumed 75% 11/14/21 09:39 Percent Meal Consumed 25% 11/13/21 18:26 Labs: RBC 3.77 X10^6/uL (4.0-5.2) L 11/14/21 05:37 Hgb 13.5 g/dL (12.0-16.0) 11/14/21 05:37 Hct 39.9 % (36-46) 11/14/21 05:37 Creatinine 0.42 mg/dL (0.52-1.04) L 11/14/21 05:37 Hemoglobin A1c 4.9 % (4.0-6.0) 11/13/21 05:25 Iron 254 ug/dL (37-170) H 11/13/21 05:25 % Saturation 94 % (15-50) H 11/13/21 05:25 NT-Pro-B Natriuret Pep 389 pg/mL (<125) H 11/13/21 05:25 Nutrition Diagnosis: 1. Moderate Chronic Protein Calorie Malnutrition r/t excessive etoh use aeb pt reports drinking 15-20 etoh equivalents daily (vodka), pt often skips meals, BMI 18.3, pt admitted with acute pancreatitis Interventions: 1. Recc abstaining from etoh to support nutrition status. 2. Recc daily consumption of ONS Ensure Original for each meal skipped. 3. Recc regular supplementation with MVI which contains thiamin. Electronically Signed by: Nicolette Harding 11/14/21 14:13 Clinical Dietitian [address] [address]
--- NOTE | 2021-11-14 16:17 | PC.NURSE ---
Discharge Note Patient A&O, VSS, RA. No complaints of pain/discomfort. Discharge packet reviewed with patient. All questions/concerns addressed. TELE/PIV discontinued. Patient able to dress self, all belongings packed and given to patient. Patient taken down via wheelchair to POV.
== END 2021-11-14 16:00 | disposition home or self-care (01) | DRG 438 ==
LOC: ED 02:28 → AC 02:46
PROVIDERS: Internal Medicine; Admitting Provider Nurse Practitioner Family; Emergency Provider Emergency Medicine; PCP Family Medicine; Referring Provider Emergency Medicine; Visit Provider Nurse Practitioner Family
DX: K85.20 Alcohol induced acute pancreatitis without necrosis or infection (principal); K29.71 Gastritis, unspecified, with bleeding; F10.239 Alcohol dependence with withdrawal, unspecified; E46 Unspecified protein-calorie malnutrition; Z68.1 Body mass index [BMI] 19.9 or less, adult; I16.0 Hypertensive urgency; D69.59 Other secondary thrombocytopenia; K70.10 Alcoholic hepatitis without ascites; F17.200 Nicotine dependence, unspecified, uncomplicated; I10 Essential (primary) hypertension; Y90.0 Blood alcohol level of less than 20 mg/100 ml; Z20.822 Contact with and (suspected) exposure to COVID-19; Z91.14 Patient's other noncompliance with medication regimen
CPT/HCPCS: 36415; 71045; 76700; 80053; 80061; 80074; 80320; 82150; 83036; 83540; 83550; 83615; 83690; 83735; 83880; 84145; 84484; 84520; 85014; 85018; 85025; 85610; 86850; 86900; 86901; 87635; 94760; 96361; 96374; 96375; 99284; C9803; C9113; J2270; J2405; J2560; J3475

== ENCOUNTER → 2021-11-22 15:54 | Outpatient (CLI) | payer SELFPAY ==
[2021-11-13 03:21] VITALS: BMI 20.7
[2021-11-22 17:40] LABS: Add Manual Diff / Slide Review NO; Basophils Absolute Auto 100 /uL (0-100); Basophils Percent Auto 1.4 % (0-2); Eosinophils Absolute Auto 100 /uL (0-450); Eosinophils Percent Auto 1.7 % (2-4); Hematocrit 36.3 % (36-46); Hemoglobin 12.4 g/dL (12.0-16.0); Lymphocytes Absolute Auto 2200 /uL (1100-4500); Lymphocytes Percent Auto 31.5 % (25-40); Mean Corpuscular HGB Conc 34.2 % (30-36); Mean Corpuscular Volume 105.4 fL (80-100); Monocytes Absolute Auto 700 /uL (0-900); Monocytes Percent Auto 9.9 % (3-14); Neutrophils Absolute Auto 3900 /uL (1500-7000); Neutrophils Percent Auto 55.5 % (50-75); Platelet Count 382 X10^3/uL (150-400); Red Blood Cell Count 3.45 X10^6/uL (4.0-5.2)
[2021-11-22 18:03] LABS: Alanine Aminotransferase 16 IU/L (<35); Albumin 3.2 g/dL (3.5-5.0); Alkaline Phosphatase 88 U/L (38-126); Amylase 183 U/L (30-110); Aspartate Aminotransferase 38 IU/L (14-36); BUN Creatinine Ratio 18.8 (6-22); Bilirubin Total 0.5 mg/dL (0.2-1.3); Blood Urea Nitrogen 12 mg/dL (7-17); Calcium 9.3 mg/dL (8.4-10.2); Carbon Dioxide 26 mmol/L (22-32); Chloride 102 mmol/L (98-107); Estimated Glomerular Filt Rate > 60.0 mL/min (>60); Globulin 3.1 g/dL (1.7-4.1); Glucose 92 mg/dL (70-100); HEMOLYSIS < 15 (0-50); Potassium 3.4 mmol/L (3.4-5.1); Sodium 138 mmol/L (137-145); Total Protein 6.3 g/dL (6.3-8.2)
[2021-11-22 18:12] LABS: Lipase 2740 U/L (23-300)
== END ==
PROVIDERS: PCP Family Medicine; Referring Provider Registered Nurse Diabetes Educator; Visit Provider Registered Nurse Diabetes Educator
DX: D69.6 Thrombocytopenia, unspecified (principal); F10.10 Alcohol abuse, uncomplicated; K85.90 Acute pancreatitis without necrosis or infection, unspecified
CPT/HCPCS: 36415; 80053; 82150; 83690; 85025

== ENCOUNTER → 2022-11-30 11:52 | Outpatient (CLI) | payer OTHER, SELFPAY ==
[2021-11-13 03:21] VITALS: BMI 20.7
--- NOTE | 2022-11-30 | DI.US.S_ITS ---
ULTRASOUND OF LEFT BREAST AND AXILLA: 11/30/2022 CLINICAL: Palpable left axilla lump. Comparison is made to exams dated: 11/30/2022 mammogram, 08/10/2020 mammogram, 01/17/2019 mammogram, and 12/14/2017 mammogram - [facility]. Ultrasound of the left breast axilla was performed. No significant abnormalities were seen sonographically in the left axilla. IMPRESSION: NEGATIVE There is no sonographic evidence of malignancy. There is no abnormality seen in the left breast to correspond with the palpable abnormality in the axilla, however, clinical followup is recommended. A 1 year screening mammogram is recommended. This exam was interpreted at Station ID: [id number]. Electronically Signed By: Yogesh callahan/rajinder:11/30/2022 14:21:22 copy to: Helena Neal letter sent: Clinical Evaluation Ultrasound BI-RADS: 1 Negative
--- NOTE | 2022-11-30 11:53 | DI.MG.S_ITS ---
BILATERAL DIGITAL SCREENING MAMMOGRAM 3D/2D WITH CAD: 11/30/2022 CLINICAL: Left axilla lump. Comparison is made to exams dated: 08/10/2020 mammogram, 01/17/2019 mammogram, and 12/14/2017 mammogram - [facility]. Both breasts are heterogeneously dense, which may obscure small masses (category c / 51-75% glandular tissue). Current study was also evaluated with a Computer Aided Detection (CAD) system. No significant masses, calcifications, or other findings are seen in either breast. IMPRESSION: INCOMPLETE: NEEDS ADDITIONAL IMAGING EVALUATION There is no abnormality seen in the left breast to correspond with the palpable abnormality in the axilla, however, ultrasound is recommended. Based on Tyrer-Cuzick model (a risk assessment model), the patient's lifetime risk is 23.3% and her 10 year risk is 4.5%. If a patient has an elevated risk, a more comprehensive evaluation should be considered and/or a referral to a genetic counselor. The [place] [employer], [employer], and NCCN Guidelines advise the consideration of Breast MRI as an adjunct to screening mammography in patients whose Lifetime risk to develop breast cancer is 20% or higher. This exam was interpreted at Station ID: [id number]. NOTE: For mammograms, a report in lay terms will be sent to the patient. Approximately 15% of breast malignancies will not be visualized mammographically. In the management of a palpable breast mass, a negative mammogram must not discourage biopsy of a clinically suspicious lesion. Electronically Signed By: Yogesh callahan/rajinder:11/30/2022 13:46:56 copy to: Helena Neal ACR BI-RADS Category 0: Incomplete [id number]
== END ==
PROVIDERS: PCP Family Medicine; Referring Provider Family Medicine; Visit Provider Family Medicine
DX: N63.32 Unspecified lump in axillary tail of the left breast (principal)
CPT/HCPCS: 76882; 77066; G0279

== ENCOUNTER 2023-02-27 12:39 | Emergency (ER) | payer OTHER, SELFPAY ==
[2021-11-13 03:21] VITALS: BMI 20.7
[2023-02-27] VITALS (13 sets, daily range): BP systolic 134–172; BP diastolic 72–98; PULSE 80–98; RESP 15–18; TEMP 36.6; O2SAT 92–100; BMI 25.8
[2023-02-27] MEDS: KETOROLAC 30 MG/ML VIAL 15 MG IV (13:12)
[2023-02-27] MEDS: ONDANSETRON 4 MG/2 ML INJ IV ×2 (13:12→16:01)
[2023-02-27] MEDS: SODIUM CHLORIDE 0.9% 1,000 ML 1000 ML IV (13:15)
--- NOTE | 2023-02-27 13:18 | ED_ITS ---
HPI - Abdominal Pain <Zander Escamilla PA-C - Last Filed: 02/27/23 18:28> General Chief Complaint: Abdominal Pain Stated Complaint: sent by [facility]/N/abd pain Time Seen by Provider: 02/27/23 12:41 Source: patient Mode of arrival: Ambulatory History of Present Illness HPI narrative: 47-year-old female with past medical history pancreatitis, alcohol abuse, hyperlipidemia, hypertension, PCOS presents to the ED with 3 days of epigastric pain. Patient describes the pain as burning in the epigastric region and it radiates through to her back. Patient also endorses nausea. Patient had 1 episode of vomiting 4 days ago. Patient has a history of heavy alcohol abuse in the past, has had pancreatitis from it. Patient states that she stopped drinking several months ago, however relapsed and started drinking alcohol again 2 weeks ago due to some stressors. Patient states that however she has not been drinking as heavily as she used to in the past. Patient states that she has been having maybe 2 drinks a day over the last 2 weeks. Patient states that the pain is aggravated by eating, patient has not eaten very much in the last 3-4 days. Patient denies fever, chills, chest pain, shortness of breath, dysuria, flank pain, diarrhea, lightheadedness, dizziness, syncope. Patient states that she is not had a bowel movement for the last 3 or 4 days since she has not been eating very much at all. Related Data Previous Rx's Medication Instructions Recorded amlodipine 5 mg tablet See Rx Instructions .Route 02/06/23 .COMPLEX #60 tabs ondansetron 4 mg disintegrating 4 mg PO Q8H PRN nausea and 02/27/23 tablet vomiting #14 tabs hydroxyzine HCl 25 mg tablet 25 mg PO TID PRN anxiety #60 tabs 03/05/23 bupropion HCl 150 mg tablet,12 hr 150 mg PO BID #180 ea 03/06/23 sustained-release (Wellbutrin SR) Allergies Allergy/AdvReac Type Severity Reaction Status Date / Time No Known Drug Allergies Allergy Verified 03/05/23 15:00 Review of Systems <Zander Escamilla PA-C - Last Filed: 02/27/23 18:28> Review of Systems ROS Unobtainable: All systems reviewed & are unremarkable except as noted in HPI and below Constitutional Constitutional: Denies chills, Denies fatigue, Denies fever(s), Denies frequent falls, Denies lethargy and Denies weakness Eyes Eyes: Denies change in vision, Denies eye discharge, Denies irritation and Denies loss of vision ENT Ears, Nose, Mouth, and Throat: Denies change in voice, Denies dizziness, Denies neck pain, Denies sore throat and Denies throat swelling Cardiovascular Cardiovascular: Denies chest pain, Denies irregular heart rhythm, Denies lightheadedness, Denies palpitations, Denies dyspnea, Denies dyspnea on exertion and Denies orthopnea Respiratory Respiratory: Denies cough, Denies dyspnea, Denies dyspnea on exertion and Denies wheezing Gastrointestinal Gastrointestinal: Reports abdominal pain, Denies change in bowel habits, Denies diarrhea, Reports nausea and Reports vomiting Genitourinary Genitourinary: Denies hematuria, Denies flank pain, Denies urinary incontinence and Denies urinary urgency Musculoskeletal Musculoskeletal: Denies back pain, Denies muscle weakness, Denies neck pain, Denies numbness and Denies tingling Integumentary/Breasts Skin/Breast: Denies pruritus, Denies erythema, Denies rash and Denies wounds Neurologic Neurologic: Denies behavioral changes, Denies confusion, Denies dizziness, Denies frequent falls, Denies loss of vision, Denies numbness, Denies tingling and Denies weakness Psychiatric Psychiatric: Denies anxiety, Denies behavioral changes, Denies confusion, Denies depression, Denies homicidal ideation and Denies suicidal ideation Endocrine Endocrine: Denies fatigue, Denies flushing and Denies palpitations Hematologic/Lymphatic Hematologic/Lymphatic: Denies easy bruising Allergic/Immunologic Allergic/Immunologic: Denies urticaria, Denies throat swelling and Denies wheezing Patient History <Zander Escamilla PA-C - Last Filed: 02/27/23 18:28> Medical History Acne Alcohol abuse Hyperlipidemia Infertility Polycystic ovarian syndrome Surgical History Anesthesia Status post delivery (~11/03/13) Status post surgical removal of both fallopian tubes (~2011) Family History Mother Hyperlipidemia Hypertension Father Cancer Social History household members: spouse and children Smoking Status: Current every day smoker alcohol intake: current Smoking Status: Current every day smoker alcohol intake frequency: 3 or more drinks per day Substance Use Type: does not use Exam <Zander Escamilla PA-C - Last Filed: 02/27/23 18:28> Narrative Exam Narrative: Const General:?cooperative, healthy appearing and comfortable [facility] Head:?normal to inspection Ears:?hearing grossly normal bilaterally Nose:?external nose normal Face and sinus:?normal facial exam and sinuses nontender Mouth:?oral mucosae normal Throat:?posterior oropharynx normal Eyes General:?appearance normal, both eyes and all related structures Neck Neck:?normal visual inspection and no lymphadenopathy noted Resp Effort & Inspection:?normal respiratory effort Auscultation:?clear to auscultation bilaterally Cardio Rate:?regular rate Rhythm:?regular rhythm GI Abdomen is soft, nondistended. Abdomen is tender to palpation in the epigastric and left upper quadrant. No CVA tenderness. Neuro General:?patient alert, patient awake and patient oriented x3 Initial Vital Signs Initial Vital Signs: Vital Signs Pulse Rate 98 H 02/27/23 12:40 Respiratory Rate 15 02/27/23 12:40 Blood Pressure 172/92 H 02/27/23 12:40 Pulse Oximetry 99 02/27/23 12:40 Oxygen Delivery Method Room Air 02/27/23 12:40 <Henrik Murphy MD - Last Filed: 03/14/23 20:02> Initial Vital Signs Initial Vital Signs: Vital Signs Pulse Rate 98 H 02/27/23 12:40 Respiratory Rate 15 02/27/23 12:40 Blood Pressure 172/92 H 02/27/23 12:40 Pulse Oximetry 99 02/27/23 12:40 Oxygen Delivery Method Room Air 02/27/23 12:40 Course <Zander Escamilla PA-C - Last Filed: 02/27/23 18:28> Orders Ordered: Discontinued Medications Famotidine (Famotidine 20 Mg/2 Ml Vial) 40 mg IV NOW MK Last Admin: 02/27/23 16:01 Dose: 40 mg Documented By: AT Sodium Chloride (Normal Saline 0.9%) 1,000 mls @ 1,000 mls/hr IV BOLUS ONE Stop: 02/27/23 13:48 Last Infusion: 02/27/23 14:44 Dose: 0 mls/hr Documented By: Admin: 02/27/23 13:15 Dose: 1,000 mls/hr Documented By: AT Sodium Chloride (Normal Saline 0.9%) 1,000 mls @ 1,000 mls/hr IV BOLUS ONE Stop: 02/27/23 13:51 Last Admin: 02/27/23 13:16 Dose: Not Given Documented By: AT Magnesium Sulfate (Magnesium Sulfate) 4 gm in 100 mls @ 25 mls/hr IV NOW ONE Stop: 02/27/23 19:49 Last Infusion: 02/27/23 18:07 Dose: 0 mls/hr Documented By: AMHannah Co-signed By: AT Admin: 02/27/23 16:01 Dose: 25 mls/hr Documented By: AT Co-signed By: NR Ketorolac Tromethamine (Ketorolac 30 Mg/Ml Vial) 15 mg IV NOW ONE Stop: 02/27/23 12:53 Last Admin: 02/27/23 13:12 Dose: 15 mg Documented By: AT Ondansetron HCl (Ondansetron 4 Mg Odt) 4 mg PO NOW PRN PRN Reason: Nausea And Vomiting Ondansetron HCl (Ondansetron 4 Mg/2 Ml Inj) 4 mg IV NOW PRN PRN Reason: Nausea And Vomiting Ondansetron HCl (Ondansetron 4 Mg/2 Ml Inj) 4 mg IV NOW ONE Stop: 02/27/23 12:54 Last Admin: 02/27/23 13:12 Dose: 4 mg Documented By: AT Ondansetron HCl (Ondansetron 4 Mg/2 Ml Inj) 4 mg IV NOW ONE Stop: 02/27/23 15:51 Last Admin: 02/27/23 16:01 Dose: 4 mg Documented By: AT Potassium Chloride (Potassium Chloride 20 Meq Tab) 40 meq PO NOW ONE Stop: 02/27/23 14:57 Last Admin: 02/27/23 15:14 Dose: 40 meq Documented By: AT Vital Signs Vital signs: Vital Signs - 8 hr 02/27/23 12:40 02/27/23 13:11 02/27/23 12:48 Temperature 98 F Pulse Rate 98 H 98 H Respiratory Rate 15 Blood Pressure 172/92 H Pulse Oximetry 99 100 Oxygen Delivery Method Room Air 02/27/23 13:00 02/27/23 13:00 02/27/23 13:30 Temperature Pulse Rate 83 Respiratory Rate Blood Pressure 149/94 H 160/93 H Pulse Oximetry 100 Oxygen Delivery Method 02/27/23 13:30 02/27/23 14:00 02/27/23 14:00 Temperature Pulse Rate 80 87 Respiratory Rate Blood Pressure 141/72 H Pulse Oximetry 99 100 Oxygen Delivery Method Room Air 02/27/23 14:35 02/27/23 15:00 02/27/23 15:00 Temperature Pulse Rate 92 H 86 Respiratory Rate 18 Blood Pressure 138/85 Pulse Oximetry 92 99 Oxygen Delivery Method Room Air Room Air <Henrik Murphy MD - Last Filed: 03/14/23 20:02> Orders Ordered: Discontinued Medications Famotidine (Famotidine 20 Mg/2 Ml Vial) 40 mg IV NOW MK Last Admin: 02/27/23 16:01 Dose: 40 mg Documented By: AT Sodium Chloride (Normal Saline 0.9%) 1,000 mls @ 1,000 mls/hr IV BOLUS ONE Stop: 02/27/23 13:48 Last Infusion: 02/27/23 14:44 Dose: 0 mls/hr Documented By: Admin: 02/27/23 13:15 Dose: 1,000 mls/hr Documented By: AT Sodium Chloride (Normal Saline 0.9%) 1,000 mls @ 1,000 mls/hr IV BOLUS ONE Stop: 02/27/23 13:51 Last Admin: 02/27/23 13:16 Dose: Not Given Documented By: AT Magnesium Sulfate (Magnesium Sulfate) 4 gm in 100 mls @ 25 mls/hr IV NOW ONE Stop: 02/27/23 19:49 Last Infusion: 02/27/23 18:07 Dose: 0 mls/hr Documented By: AMU Co-signed By: AT Admin: 02/27/23 16:01 Dose: 25 mls/hr Documented By: AT Co-signed By: NR Ketorolac Tromethamine (Ketorolac 30 Mg/Ml Vial) 15 mg IV NOW ONE Stop: 02/27/23 12:53 Last Admin: 02/27/23 13:12 Dose: 15 mg Documented By: AT Ondansetron HCl (Ondansetron 4 Mg Odt) 4 mg PO NOW PRN PRN Reason: Nausea And Vomiting Ondansetron HCl (Ondansetron 4 Mg/2 Ml Inj) 4 mg IV NOW PRN PRN Reason: Nausea And Vomiting Ondansetron HCl (Ondansetron 4 Mg/2 Ml Inj) 4 mg IV NOW ONE Stop: 02/27/23 12:54 Last Admin: 02/27/23 13:12 Dose: 4 mg Documented By: AT Ondansetron HCl (Ondansetron 4 Mg/2 Ml Inj) 4 mg IV NOW ONE Stop: 02/27/23 15:51 Last Admin: 02/27/23 16:01 Dose: 4 mg Documented By: AT Potassium Chloride (Potassium Chloride 20 Meq Tab) 40 meq PO NOW ONE Stop: 02/27/23 14:57 Last Admin: 02/27/23 15:14 Dose: 40 meq Documented By: AT Vital Signs Vital signs: Vital Signs - 8 hr 02/27/23 12:40 02/27/23 13:11 02/27/23 12:48 Temperature 98 F Pulse Rate 98 H 98 H Respiratory Rate 15 Blood Pressure 172/92 H Pulse Oximetry 99 100 Oxygen Delivery Method Room Air 02/27/23 13:00 02/27/23 13:00 02/27/23 13:30 Temperature Pulse Rate 83 Respiratory Rate Blood Pressure 149/94 H 160/93 H Pulse Oximetry 100 Oxygen Delivery Method 02/27/23 13:30 02/27/23 14:00 02/27/23 14:00 Temperature Pulse Rate 80 87 Respiratory Rate Blood Pressure 141/72 H Pulse Oximetry 99 100 Oxygen Delivery Method Room Air 02/27/23 14:35 02/27/23 15:00 02/27/23 15:00 Temperature Pulse Rate 92 H 86 Respiratory Rate 18 Blood Pressure 138/85 Pulse Oximetry 92 99 Oxygen Delivery Method Room Air Room Air MDM - Abdominal Pain <Zander Escamilla PA-C - Last Filed: 02/27/23 18:28> Lab Data 02/27/23 12:50 02/27/23 12:50 Labs: Lab Results 02/27/23 02/27/23 02/27/23 Range/Units 12:50 12:50 12:50 WBC 10.4 (4.5-11.0) X10^3/uL RBC 4.38 (4.0-5.2) X10^6/uL Hgb 13.4 (12.0-16.0) g/dL Hct 39.8 (36-46) % MCV 91.0 (80-100) fL MCH 30.6 (26-34) PG MCHC 33.6 (30-36) % RDW 17.3 H (11.6-14.8) % Plt Count 287 (150-400) X10^3/uL Neut % (Auto) 72.6 (50-75) % Lymph % (Auto) 17.8 L (25-40) % [place] % (Auto) 7.1 (3-14) % Eos % (Auto) 1.9 L (2-4) % Baso % (Auto) 0.6 (0-2) % Neut # (Auto) 7500 H (6561-1577) /uL Lymph # (Auto) 1900 (6175-4973) /uL [place] # (Auto) 700 (0-900) /uL Eos # (Auto) 200 (0-450) /uL Baso # (Auto) 100 (0-100) /uL Sodium 131 L (137-145) mmol/L Potassium 3.0 L (3.4-5.1) mmol/L Chloride 95 L (98-107) mmol/L Carbon Dioxide 27 (22-32) mmol/L BUN 7 (7-17) mg/dL Creatinine 0.45 L (0.52-1.04) mg/dL Estimated GFR > 60 (>60) mL/min BUN/Creatinine Ratio 15.6 (6-22) Glucose 111 H (70-100) mg/dL Calcium 9.4 (8.4-10.2) mg/dL Phosphorus (2.5-4.5) mg/dL Magnesium (1.6-2.3) mg/dL Total Bilirubin 1.1 (0.2-1.3) mg/dL AST 44 H (14-36) IU/L ALT 19 (<35) IU/L Alkaline Phosphatase 108 (38-126) U/L Total Protein 7.0 (6.3-8.2) g/dL Albumin 3.6 (3.5-5.0) g/dL Globulin 3.4 (1.7-4.1) g/dL Albumin/Globulin Ratio 1.1 (1.0-2.8) Lipase 1981 H (23-300) U/L Serum , Qual Negative (Negative) Urine RBC (0-5/HPF) Urine WBC (0-5/HPF) Ur Squamous Epith Cells (0-5/HPF) Urine Bacteria (None) Ur Culture Indicated? 02/27/23 02/27/23 Range/Units 12:50 14:37 WBC (4.5-11.0) X10^3/uL RBC (4.0-5.2) X10^6/uL Hgb (12.0-16.0) g/dL Hct (36-46) % MCV (80-100) fL MCH (26-34) PG MCHC (30-36) % RDW (11.6-14.8) % Plt Count (150-400) X10^3/uL Neut % (Auto) (50-75) % Lymph % (Auto) (25-40) % [place] % (Auto) (3-14) % Eos % (Auto) (2-4) % Baso % (Auto) (0-2) % Neut # (Auto) (1431-7558) /uL Lymph # (Auto) (7252-0012) /uL [place] # (Auto) (0-900) /uL Eos # (Auto) (0-450) /uL Baso # (Auto) (0-100) /uL Sodium (137-145) mmol/L Potassium (3.4-5.1) mmol/L Chloride (98-107) mmol/L Carbon Dioxide (22-32) mmol/L BUN (7-17) mg/dL Creatinine (0.52-1.04) mg/dL Estimated GFR (>60) mL/min BUN/Creatinine Ratio (6-22) Glucose (70-100) mg/dL Calcium (8.4-10.2) mg/dL Phosphorus 3.3 (2.5-4.5) mg/dL Magnesium 1.0 L (1.6-2.3) mg/dL Total Bilirubin (0.2-1.3) mg/dL AST (14-36) IU/L ALT (<35) IU/L Alkaline Phosphatase (38-126) U/L Total Protein (6.3-8.2) g/dL Albumin (3.5-5.0) g/dL Globulin (1.7-4.1) g/dL Albumin/Globulin Ratio (1.0-2.8) Lipase (23-300) U/L Serum , Qual (Negative) Urine RBC 5-10/hpf H (0-5/HPF) Urine WBC 1-5/hpf (0-5/HPF) Ur Squamous Epith Cells 5-10 /hpf H (0-5/HPF) Urine Bacteria Few (2-10) H (None) Ur Culture Indicated? Cult not indicated Point of care testing: Urine Dip Bedside Urine Glucose Negative Bedside Urine Bilirubin - Negative Bedside Urine Ketone +++ 80 Urine Specific [place] 1.005 Bedside Urine Occult Blood +++ Bedside Urine pH 7.0 Bedside Urine Protein - Negative Bedside Urine Urobilinogen - Negative Bedside Urine Nitrite - Negative Bedside Urine Leukocytes - Negative Esterase MDM Narrative Medical decision making narrative: 47-year-old female with past medical history pancreatitis, alcohol abuse, hyperlipidemia, hypertension, PCOS presents to the ED with 3 days of epigastric pain. Concern for pancreatitis versus gastritis versus GERD versus peptic ulcer versus other intra-abdominal pathology versus other. Will obtain labs, lipase, CT abdomen pelvis, UA, urine hCG. Will give Zofran, ketorolac, IV fluids. Will reassess. Lipase elevated to 1981. CT abdomen pelvis shows pancreatitis. No pancreatic necrosis or pancreatic pseudocyst. There is hepatic steatosis. There is also mild colonic wall thickening involving the splenic flexure, most likely secondary to direct spread of inflammation from the acute pancreatitis. There is a moderate-sized hiatal hernia and multiple cysts in the right ovary. Potassium low at 3.0. Supplemented with p.o. potassium. Magnesium low at 1.0. Magnesium supplemented. Patient was given Pepcid AC for heartburn. Patient's symptoms improved with medications. Patient passed the oral challenge test. Discussed findings with patient, discharged patient with a prescription for Zofran. Discussed good hydration, abstaining from alcohol, pain control with Tylenol and ibuprofen. Recommend prompt follow-up with PCP and GI specialist. ED return precautions were discussed with patient. Patient verbalized unde rstanding. Medical records reviewed: Yes <Henrik Murphy MD - Last Filed: 03/14/23 20:02> Lab Data Labs: Lab Results 06/20/23 06/20/23 06/20/23 Range/Units 12:50 12:50 12:50 WBC 10.4 (4.5-11.0) X10^3/uL RBC 4.38 (4.0-5.2) X10^6/uL Hgb 13.4 (12.0-16.0) g/dL Hct 39.8 (36-46) % MCV 91.0 (80-100) fL MCH 30.6 (26-34) PG MCHC 33.6 (30-36) % RDW 17.3 H (11.6-14.8) % Plt Count 287 (150-400) X10^3/uL Neut % (Auto) 72.6 (50-75) % Lymph % (Auto) 17.8 L (25-40) % Hettinger % (Auto) 7.1 (3-14) % Eos % (Auto) 1.9 L (2-4) % Baso % (Auto) 0.6 (0-2) % Neut # (Auto) 7500 H (4901-0891) /uL Lymph # (Auto) 1900 (4285-8553) /uL [place] # (Auto) 700 (0-900) /uL Eos # (Auto) 200 (0-450) /uL Baso # (Auto) 100 (0-100) /uL Sodium 131 L (137-145) mmol/L Potassium 3.0 L (3.4-5.1) mmol/L Chloride 95 L (98-107) mmol/L Carbon Dioxide 27 (22-32) mmol/L BUN 7 (7-17) mg/dL Creatinine 0.45 L (0.52-1.04) mg/dL Estimated GFR > 60 (>60) mL/min BUN/Creatinine Ratio 15.6 (6-22) Glucose 111 H (70-100) mg/dL Calcium 9.4 (8.4-10.2) mg/dL Phosphorus (2.5-4.5) mg/dL Magnesium (1.6-2.3) mg/dL Total Bilirubin 1.1 (0.2-1.3) mg/dL AST 44 H (14-36) IU/L ALT 19 (<35) IU/L Alkaline Phosphatase 108 (38-126) U/L Total Protein 7.0 (6.3-8.2) g/dL Albumin 3.6 (3.5-5.0) g/dL Globulin 3.4 (1.7-4.1) g/dL Albumin/Globulin Ratio 1.1 (1.0-2.8) Lipase 1981 H (23-300) U/L Serum , Qual Negative (Negative) Urine RBC (0-5/HPF) Urine WBC (0-5/HPF) Ur Squamous Epith Cells (0-5/HPF) Urine Bacteria (None) Ur Culture Indicated? 02/27/23 02/27/23 Range/Units 12:50 14:37 WBC (4.5-11.0) X10^3/uL RBC (4.0-5.2) X10^6/uL Hgb (12.0-16.0) g/dL Hct (36-46) % MCV (80-100) fL MCH (26-34) PG MCHC (30-36) % RDW (11.6-14.8) % Plt Count (150-400) X10^3/uL Neut % (Auto) (50-75) % Lymph % (Auto) (25-40) % [place]ting[place] % (Auto) (3-14) % Eos % (Auto) (2-4) % Baso % (Auto) (0-2) % Neut # (Auto) (1634-7657) /uL Lymph # (Auto) (4211-1160) /uL Hettinger # (Auto) (0-900) /uL Eos # (Auto) (0-450) /uL Baso # (Auto) (0-100) /uL Sodium (137-145) mmol/L Potassium (3.4-5.1) mmol/L Chloride (98-107) mmol/L Carbon Dioxide (22-32) mmol/L BUN (7-17) mg/dL Creatinine (0.52-1.04) mg/dL Estimated GFR (>60) mL/min BUN/Creatinine Ratio (6-22) Glucose (70-100) mg/dL Calcium (8.4-10.2) mg/dL Phosphorus 3.3 (2.5-4.5) mg/dL Magnesium 1.0 L (1.6-2.3) mg/dL Total Bilirubin (0.2-1.3) mg/dL AST (14-36) IU/L ALT (<35) IU/L Alkaline Phosphatase (38-126) U/L Total Protein (6.3-8.2) g/dL Albumin (3.5-5.0) g/dL Globulin (1.7-4.1) g/dL Albumin/Globulin Ratio (1.0-2.8) Lipase (23-300) U/L Serum , Qual (Negative) Urine RBC 5-10/hpf H (0-5/HPF) Urine WBC 1-5/hpf (0-5/HPF) Ur Squamous Epith Cells 5-10 /hpf H (0-5/HPF) Urine Bacteria Few (2-10) H (None) Ur Culture Indicated? Cult not indicated Point of care testing: Urine Dip Bedside Urine Glucose Negative Bedside Urine Bilirubin - Negative Bedside Urine Ketone +++ 80 Urine Specific [place] 1.005 Bedside Urine Occult Blood +++ Bedside Urine pH 7.0 Bedside Urine Protein - Negative Bedside Urine Urobilinogen - Negative Bedside Urine Nitrite - Negative Bedside Urine Leukocytes - Negative Esterase Discharge Plan Departure Patient Disposition: Home Clinical Impression: Pancreatitis Instructions: DI for Pancreatitis Activity Restrictions/Additional Instructions: You were evaluated in the ED today for abdominal pain, nausea, vomiting. Your lipase was elevated and your CT abdomen pelvis shows pancreatitis as well. You are being prescribed Zofran for nausea to take as needed at home. Please start with a light, low-fat diet, slowly advancing the diet as tolerated. Please ensure good hydration. You may also take Pepcid AC twice daily for the next 4 weeks. You may also take Tylenol or ibuprofen for the pain. Please refrain from using any alcohol, since it is exacerbating your symptoms. Please follow- up with your PCP and a GI specialist as soon as possible. Please return to the ED if you have worsening symptoms, persistent vomiting. Prescriptions: New ondansetron 4 mg tablet,disintegrating 4 mg PO Q8H PRN (Reason: nausea and vomiting) Qty: 14 0RF No Action amlodipine 5 mg tablet See Rx Instructions .ROUTE .COMPLEX Qty: 60 0RF Dose Instruction: take 1 tablet by mouth once daily Rx Instructions: take 1 tablet by mouth once daily bupropion HCl [Wellbutrin SR] 150 mg tablet sustained-release 12 hr 150 mg PO BID Qty: 180 0RF hydroxyzine HCl 25 mg tablet 25 mg PO TID PRN (Reason: anxiety) Qty: 60 1RF Referrals: Ramiro Cardona MD [Primary Care Provider] - Stand Alone Forms: Patient Portal/API <Henrik Murphy MD - Last Filed: 03/14/23 20:02> Cosign ED Attending Thomature Attestation: I was immediately available in the department for consultation. This documentation has been reviewed and I agree with assessment and plan. Supervised by Henrik Murphy MD
[2023-02-27 13:20] LABS: Add Manual Diff / Slide Review NO; Basophils Absolute Auto 100 /uL (0-100); Basophils Percent Auto 0.6 % (0-2); Eosinophils Absolute Auto 200 /uL (0-450); Eosinophils Percent Auto 1.9 % (2-4); Hematocrit 39.8 % (36-46); Hemoglobin 13.4 g/dL (12.0-16.0); Lymphocytes Absolute Auto 1900 /uL (1100-4500); Lymphocytes Percent Auto 17.8 % (25-40); Mean Corpuscular HGB Conc 33.6 % (30-36); Mean Corpuscular Hemoglobin 30.6 PG (26-34); Monocytes Absolute Auto 700 /uL (0-900); Monocytes Percent Auto 7.1 % (3-14); Neutrophils Absolute Auto 7500 /uL (1500-7000); Neutrophils Percent Auto 72.6 % (50-75); Platelet Count 287 X10^3/uL (150-400); Red Blood Cell Count 4.38 X10^6/uL (4.0-5.2); Red Cell Distribution Width 17.3 % (11.6-14.8); White Blood Cell Count 10.4 X10^3/uL (4.5-11.0)
[2023-02-27 13:40] LABS: Alanine Aminotransferase 19 IU/L (<35); Albumin 3.6 g/dL (3.5-5.0); Albumin Globulin Ratio 1.1 (1.0-2.8); Alkaline Phosphatase 108 U/L (38-126); Aspartate Aminotransferase 44 IU/L (14-36); BUN Creatinine Ratio 15.6 (6-22); Bilirubin Total 1.1 mg/dL (0.2-1.3); Blood Urea Nitrogen 7 mg/dL (7-17); Calcium 9.4 mg/dL (8.4-10.2); Carbon Dioxide 27 mmol/L (22-32); Chloride 95 mmol/L (98-107); Estimated Glomerular Filt Rate > 60 mL/min (>60); Globulin 3.4 g/dL (1.7-4.1); Glucose 111 mg/dL (70-100); HEMOLYSIS 48 (0-50); Lipase 1981 U/L (23-300); Sodium 131 mmol/L (137-145)
--- NOTE | 2023-02-27 14:11 | DI.CT.S_ITS ---
PROCEDURE: CT ABDOMEN PELVIS W CON INDICATIONS: Epigastric pain; hx of pancreatitis TECHNIQUE: After the administration of oral and IV contrast, axial sections were acquired from the lung bases to the pubic symphysis. Coronal and sagittal reformats were performed. For radiation dose reduction, the following was used: automated exposure control, adjustment of mA and/or kV according to patient size. COMPARISON: [facility], US, US PELVIC COMPLETE, 11/02/2020, 10:54. [facility], US, US ABDOMEN COMPLETE, 11/13/2021, 14:17. FINDINGS: Image quality: Excellent. Lung bases: Bibasilar scars and atelectasis. There is a moderate-sized hiatal hernia. There is concentric thickening at the gastroesophageal junction. Heart: No significant findings. ABDOMEN: Liver: Normal size. Moderate hepatic steatosis. Gallbladder: Unremarkable. Biliary ducts: Unremarkable. Pancreas: There is stranding in the area of the pancreatic tail suspicious for pancreatitis. Small amount of peripancreatic fluid in the lesser sac. Spleen: Unremarkable. Adrenal Glands: Unremarkable. Kidneys and Ureters: Unremarkable. Stomach and Bowel: Stomach, small bowel loops, and colon are normal in caliber. Mild thickening of the splenic flexure of colon, which may be secondary to direct spread of inflammation from acute pancreatitis. Mild diffuse thickening of descending and sigmoid colon, as well as rectum, is likely secondary to indicate adequate distension. Normal appendix. Peritoneum: Small intraperitoneal fluid in the lesser sac. No free air. Ventral Wall: No hernia. Abdominal Nodes: No retroperitoneal or mesenteric adenopathy by size criteria. Vessels: Aorta and inferior vena cava are normal in size. PELVIS: Pelvic Organs: Myomatous uterus. There a cluster cyst in the right ovary. Left ovary is unremarkable. No pathological free fluid in the cul-de-sac. Bladder: Unremarkable. Pelvic Nodes: No enlarged lymph nodes. Miscellaneous: No inguinal hernias are seen. Bones: Unremarkable. IMPRESSION: 1. Stranding in the area of the tail of the pancreas consistent with acute pancreatitis. There is a small amount of peripancreatic fluid and free fluid in the lesser sac. No findings to suggest pancreatic necrosis. No pancreatic pseudocysts. 2. Hepatic steatosis. 3. There is mild colonic wall thickening involving the splenic flexure, most likely secondary to direct spread of inflammation from acute pancreatitis. Superimposed colitis is a differential diagnosis. Recommend clinical correlation. Mild diffuse thickening of descending and sigmoid colon, as well as rectum, is likely secondary to indicate adequate distension. 4. Moderate-sized hiatal hernia. There is mild thickening at the gastroesophageal junction. Consider esophagram or EGD for follow-up. 5. Multiple cysts in the right ovary. Consider pelvic ultrasound for follow-up. The result was discussed with Zander Escamilla PA-C, in ER. Dictated by: Faith Guerrero M.D. on 02/27/2023 at 14:37 Approved by: Faith Guerrero M.D. on 02/27/2023 at 14:47
[2023-02-27 14:31] LABS: Pregnancy Test Serum,Qual Negative (Negative)
[2023-02-27] MEDS: POTASSIUM CHLORIDE 20 MEQ TAB 40 MEQ PO (15:14)
[2023-02-27 15:16] LABS: Bacteria Urine Few (2-10); RBC Urine 5-10/HPF (0-5/HPF); WBC Urine 1-5/HPF (0-5/HPF)
[2023-02-27 15:17] LABS: Squamous Epithelial Cell Urine 5-10 /HPF (0-5/HPF)
[2023-02-27 15:18] LABS: Culture Indicated Urine Cult Not Indicated
--- NOTE | 2023-02-27 15:21 | PC.NURSE ---
Patient given ice and water, instructed to take small sips in intervals. Pt verbalizes understanding, PO challenge initiated.
--- NOTE | 2023-02-27 15:37 | PC.NURSE ---
Addendum entered by Aracely Blake R.N. 02/27/23 15:44: Checked emesis bag and no pills noted, small amount of liquid. Original Note: Prior to potassium pt stated she has difficulty swallowing large pills and they have made her vomit in the past. Pt utilized call button to report vomit post potassium, feels heart burn, history of heart burn.
[2023-02-27 15:40] LABS: Phosphorous 3.3 mg/dL (2.5-4.5)
[2023-02-27] MEDS: FAMOTIDINE 20 MG/2 ML VIAL 40 MG IV (16:01)
[2023-02-27] MEDS: MAGNESIUM SULFATE 4 GM/100 ML PIGGYBACK IV (16:01)
== END 2023-02-27 18:27 | disposition home or self-care (01) ==
PROVIDERS: Emergency Medicine; Emergency Provider Student in an Organized Health Care Education/Training Program; PCP Family Medicine
DX: K85.90 Acute pancreatitis without necrosis or infection, unspecified (principal)
CPT/HCPCS: 36415; 74177; 80053; 81003; 81015; 83690; 83735; 84100; 84703; 85025; 96361; 96374; 96375; 96376; 99284; J1885; J2405; J3475; Q9967

== ENCOUNTER → 2023-05-23 12:51 | Outpatient (CLI) | payer OTHER, SELFPAY ==
[2021-11-13 03:21] VITALS: BMI 20.7
--- NOTE | 2023-05-23 12:52 | DI.US.S_ITS ---
PROCEDURE: US PELVIC COMPLETE INDICATIONS: vaginal bleeding x 1 month TECHNIQUE: Real-time scanning was performed of the pelvic organs, with image documentation. Additional endovaginal scanning was necessary due to incomplete visualization of the adnexal and endometrial structures by transabdominal scanning. COMPARISON: [facility], US, US PELVIC COMPLETE, 11/02/2020, 10:54. FINDINGS: Uterus: Uterus is retroverted and normal in size at 7.4 x 5.0 x 5.4 cm. The myometrium is heterogeneous with fibroids. The endometrium measures 15 mm combined thickness. There are several uterine fibroids, the largest an intramural fibroid in the left anterior uterus measuring 1.6 x 0.7 x 1.2 cm. There is a right anterior intramural fibroid measuring 1.0 x 0.5 x 1.1 cm. There is a 1.5 x 1.3 x 1.4 cm submucosal fibroid. Ovaries: The right ovary measures 3.0 x 3.2 x 3.0 cm cm, with a calculated ovarian volume of 17.4 cc. The left ovary measures 2.3 x 4.2 x 5.9 cm cm, with a calculated ovarian volume of 30.3 cc. The ovaries have a normal sonographic appearance. Less than 12 follicles can be seen in each ovary. Septated left ovarian cyst measuring 2.8 cm. Simple left ovarian cyst measuring 2.3 cm. Right ovarian simple cyst measuring 1.9 cm. No adnexal masses are seen. Other: No pathologic free abdominal or pelvic fluid. IMPRESSION: 1. The endometrium measures 1.5 cm. There is a 1.5 cm submucosal fibroid. 2. Several uterine fibroids are noted, the largest measuring 1.6 cm. 3. Bilateral ovarian cysts, the largest measuring 2.8 cm in the left ovary with septations. We strive to produce accurate, complete, and clear reports of imaging services. To assist us in improving patient care, this report was composed using standard report templates and voice recognition software. Therefore, it may contain abnormal punctuation, insertions and/or omissions. Occasional wrong-word or sound-alike substitutions may occur. Though we review the report and make efforts to correct it, we do recommend that the report be read carefully in proper context to recognize any text inaccuracies. Dictated by: Haseeb Owen M.D. on 05/23/2023 at 13:55 Approved by: Haseeb Owen M.D. on 05/23/2023 at 14:01
[2023-05-23 14:24] LABS: Add Manual Diff / Slide Review NO; Basophils Absolute Auto 100 /uL (0-100); Basophils Percent Auto 0.8 % (0-2); Eosinophils Absolute Auto 300 /uL (0-450); Eosinophils Percent Auto 3.2 % (2-4); Hematocrit 36.6 % (36-46); Hemoglobin 12.3 g/dL (12.0-16.0); Lymphocytes Absolute Auto 2600 /uL (1100-4500); Lymphocytes Percent Auto 31.7 % (25-40); Mean Corpuscular HGB Conc 33.6 % (30-36); Mean Corpuscular Hemoglobin 33.2 PG (26-34); Mean Corpuscular Volume 98.7 fL (80-100); Monocytes Absolute Auto 500 /uL (0-900); Monocytes Percent Auto 6.4 % (3-14); Neutrophils Absolute Auto 4800 /uL (1500-7000); Neutrophils Percent Auto 57.9 % (50-75); Platelet Count 348 X10^3/uL (150-400); Red Blood Cell Count 3.71 X10^6/uL (4.0-5.2); Red Cell Distribution Width 21.3 % (11.6-14.8); White Blood Cell Count 8.3 X10^3/uL (4.5-11.0)
[2023-05-23 14:34] LABS: Alanine Aminotransferase 24 IU/L (<35); Albumin 3.2 g/dL (3.5-5.0); Albumin Globulin Ratio 1.1 (1.0-2.8); Alkaline Phosphatase 102 U/L (38-126); Aspartate Aminotransferase 84 IU/L (14-36); BUN Creatinine Ratio 11.1 (6-22); Bilirubin Total 0.5 mg/dL (0.2-1.3); Blood Urea Nitrogen 5 mg/dL (7-17); Calcium 8.7 mg/dL (8.4-10.2); Carbon Dioxide 24 mmol/L (22-32); Chloride 99 mmol/L (98-107); Estimated Glomerular Filt Rate > 60 mL/min (>60); Globulin 2.8 g/dL (1.7-4.1); Glucose 114 mg/dL (70-100); HEMOLYSIS < 15 (0-50); Potassium 3.5 mmol/L (3.4-5.1); Sodium 132 mmol/L (137-145)
[2023-05-23 14:39] LABS: Anisocytosis 2+; Macrocytosis 1+
== END ==
PROVIDERS: PCP Family Medicine; Referring Provider Pediatrics; Visit Provider Pediatrics
DX: N93.9 Abnormal uterine and vaginal bleeding, unspecified (principal); D25.1 Intramural leiomyoma of uterus; D25.0 Submucous leiomyoma of uterus; N83.292 Other ovarian cyst, left side; N83.291 Other ovarian cyst, right side; K85.90 Acute pancreatitis without necrosis or infection, unspecified; R53.83 Other fatigue; E78.5 Hyperlipidemia, unspecified; F10.10 Alcohol abuse, uncomplicated; I10 Essential (primary) hypertension
CPT/HCPCS: 36415; 76830; 76856; 80053; 85025

== ENCOUNTER 2023-10-12 08:26 | Day surgery (SDC) | payer OTHER, SELFPAY ==
[2021-11-13 03:21] VITALS: BMI 20.7
[2023-10-09 15:12] VITALS: BMI 23.1
--- NOTE | 2023-10-12 | PATH_ITS ---
[facility] Accession Number: [id number] No. of containers..01 Tissue . 01 Material submitted: . endometrium - UTERINE FIBROID . 01 Diagnosis: Uterine Fibroid: Small fragments of weakly proliferative endometrial tissue; negative for glandular hyperplasia, cytologic atypia or malignancy. Abundant fragments of myometrium; negative for significant cytologic atypia, increased mitotic activity, or necrosis. The findings are consistent with fragments of a submucosal leiomyoma, in the appropriate clinical and imaging setting. MRV 10/17/2023 1346 Local . 01 Electronically signed: . Shahana Munson MD, Pathologist NPI- [id number] . 01 Gross description: . UTERINE FIBROID: Received in formalin are minute fragments of mucoid and hemorrhagic material measuring 3.0 x 2.0 x 0.5 cm in aggregate. Submitted in toto in 2 cassettes. /KAYKAY 10/16/2023 0032 Local . 01 Pathologist provided ICD-10: D25.9 . 01 CPT . 731908 Specimen Comment: A courtesy copy of this report has been sent to [facility] Pathology Performed at: [address] [facility] Cytology [address] [place] [address], [place], [place] [id number] MD Eddie Hardy MD Phone: [phone]
[2023-10-12] MEDS: LACTATED RINGERS 1,000 ML 42 ML IV (09:02)
[2023-10-12] MEDS: ACETAMINOPHEN 325 MG TABLET 975 MG PO (09:02)
[2023-10-12 09:07] VITALS: BMI 23.1
[2023-10-12 09:09] VITALS: BP 142/92; PULSE 105; RESP 16; TEMP 36.2; O2SAT 100
[2023-10-12] MEDS: FAMOTIDINE 20 MG/2 ML VIAL IV (09:19)
[2023-10-12] MEDS: SCOPOLAMINE 1 PATCH TOP (09:19)
--- NOTE | 2023-10-12 09:27 | PM.PREOP ---
Pre-operative Note Interval Note History & Physical reviewed/Exam performed by Physician: Yes Changes to H&P: No H&P completed within 30 days and has changed as indicated here:: see H&P from 10/05/23
--- NOTE | 2023-10-12 10:12 | SUR.OPER ---
Lithotomy on padded OR bed, head on pillow, arms secured on padded arm boards at <90 degrees abduction. Legs secured in padded yellow fins stirrups.
--- NOTE | 2023-10-12 10:31 | PM.OP.1 ---
Operative Date/Time/Diagnoses Date of procedure: 10/12/23 Time of procedure: 10:00 Pre-op diagnosis: Abnormal uterine bleeding due to uterine leiomyoma Post-op diagnosis: same Procedure & Clinicians Procedure: Diagnostic hysteroscopy Hysteroscopic myomectomy Mirena IUD insertion Same procedure as scheduled: Yes Indications: 48-year-old female with AUB-L here for planned diagnostic hysteroscopy, possible hysteroscopic myomectomy, with Mirena IUD insertion. She states that she is continued to have almost daily bleeding, which is a light flow. She changes a light pad once or twice a day. She previously tried the contraceptive patch for her bleeding, which didn't help. Surgeon: Joseline Coker Click Yes if Unassisted: Yes Anesthesia Type: MAC +/- Operative Notes Findings: Approximately 3 cm intrauterine fibroid noted on entry into the uterine cavity. Bilateral tubal ostia visualized. Closure Type: not applicable Specimen(s): other (Uterine fibroid) Estimated Blood Loss (mL): 100 Blood products transfused: none Procedure in detail: The risks, benefits, indications and alternatives of the procedure were reviewed with the patient and informed consent was obtained. The pt was taken to the operating room where MAC was obtained without difficulty. The pt was then placed in the low lithotomy position using gel-padded Camilo stirrups. Sequential compression devices were placed bilaterally for VTE prophylaxis. The pt was then prepped and draped in the sterile fashion. A sterile speculum was placed in the patient?s vagina and the cervix was visualized. A single tooth tenaculum was used to grasp the anterior lip of the cervix. The cervix was then gently, dilated to a size 8 Hegar dilator. The operative hysteroscope was first primed and pressure set. The operative hysteroscope was then advanced through the endocervical canal under direct visualization. The uterus was distended with warm saline, and notable for the above findings. The Myosure XL was then inserted into the operative hysteroscope. The uterine fibroid was then removed with the MyoSure. The operative hysteroscope was then removed under direct visualization. Tissue obtained was sent to pathology for review. The uterus was then sounded to 8 cm. The Mirena IUD was then placed per manufacture protocol, and the strings trimmed to 2 cm. The single tooth tenaculum was then removed from the anterior lip of the cervix. The tenaculum site was noted to be hemostatic after direct pressure was applied. All instruments were then removed from the patient?s vagina. Hysteroscopic fluid deficit was 100cc of normal saline. The patient tolerated the procedure well. At the completion of the case the sponge and needle counts were correct x 2. The patient was taken to the PACU in stable condition. Mirena IUD lot #[id number]; Exp Complications: none Post-operative Condition: stable Disposition: PACU Plan for aftercare: Discharge to home once patient is meeting all discharge criteria.
[2023-10-12 10:33] VITALS: BP 135/97; PULSE 97; RESP 18; TEMP 36.1; O2SAT 99
[2023-10-12 10:38] VITALS: BP 142/97; PULSE 94; RESP 18; O2SAT 98
[2023-10-12 10:43] VITALS: BP 152/103; PULSE 94; RESP 18; O2SAT 97
[2023-10-12] MEDS: KETOROLAC 30 MG/ML VIAL IV (10:53)
[2023-10-12 10:54] VITALS: BP 148/103; PULSE 87; RESP 18; O2SAT 98
[2023-10-12] MEDS: OXYCODONE IR 5 MG TABLET PO (10:58)
[2023-10-12 11:00] VITALS: BP 149/103; PULSE 90; RESP 16; TEMP 36.2; O2SAT 97
== END 2023-10-12 11:27 | disposition home or self-care (01) ==
PROVIDERS: PCP Family Medicine; Referring Provider Student in an Organized Health Care Education/Training Program; Visit Provider Student in an Organized Health Care Education/Training Program
PROC: 0UDB8ZZ Extraction of Endometrium, Via Natural or Artificial Opening Endoscopic (ICD-10-PCS; CPT 58558; principal; 2023-10-12 09:45)
DX: N93.9 Abnormal uterine and vaginal bleeding, unspecified (principal); D25.9 Leiomyoma of uterus, unspecified; Z30.430 Encounter for insertion of intrauterine contraceptive device; F17.210 Nicotine dependence, cigarettes, uncomplicated
CPT/HCPCS: 58561; 58300; 81025; C1776; J1100; J1885; J2405; J2704; J3010; J7298

== ENCOUNTER → 2023-10-30 13:29 | Outpatient (CLI) | payer OTHER, SELFPAY ==
[2021-11-13 03:21] VITALS: BMI 20.7
--- NOTE | 2023-10-30 13:30 | DI.RAD.S_ITS ---
PROCEDURE: XR LUMBAR SPINE 2-3V INDICATIONS: lumbar pain with radiculopathy TECHNIQUE: 3 views of the lumbar spine were acquired. COMPARISON: None. FINDINGS: Bones: 5 [id number] vertebrae are present. There is mild rotatory scoliosis. No vertebral body compression fractures. No suspicious bony lesions. Mild degenerative disc and facet disease in the lower thoracic spine and lumbar spine. Soft tissues: Overlying bowel gas pattern is normal. No suspicious soft tissue calcifications. IMPRESSION: 1. No acute bony abnormality. 2. Mild degenerative disc and facet disease. Dictated by: Faith Guerrero M.D. on 10/31/2023 at 14:58 Approved by: Faith Guerrero M.D. on 10/31/2023 at 14:59
[2023-10-30 15:19] LABS: Alanine Aminotransferase 16 IU/L (<35); Albumin 3.9 g/dL (3.5-5.0); Albumin Globulin Ratio 1.1 (1.0-2.8); Alkaline Phosphatase 129 U/L (38-126); Aspartate Aminotransferase 38 IU/L (14-36); BUN Creatinine Ratio 18.6 (6-22); Bilirubin Total 0.8 mg/dL (0.2-1.3); Blood Urea Nitrogen 8 mg/dL (7-17); Calcium 9.6 mg/dL (8.4-10.2); Carbon Dioxide 24 mmol/L (22-32); Chloride 103 mmol/L (98-107); Estimated Glomerular Filt Rate > 60 mL/min (>60); Globulin 3.7 g/dL (1.7-4.1); Glucose 104 mg/dL (70-100); HEMOLYSIS < 15 (0-50); Lipase 226 U/L (23-300); Potassium 3.1 mmol/L (3.4-5.1); Sodium 137 mmol/L (137-145); Total Protein 7.6 g/dL (6.3-8.2)
[2023-10-30 15:50] LABS: TSH w/ Reflex to FT4 1.77 uIU/mL (0.47-4.68)
[2023-10-30 16:07] LABS: Vitamin B12 257 pg/mL (239-931)
[2023-10-30 16:58] LABS: Creatinine Urine Random 311.3 mg/dL
[2023-10-30 17:02] LABS: Microalbumi Creatinin Ratio Ur 16.7 ug/mg CR (<30); Microalbumin Urine Random 5.2 mg/dL (0-1.6)
[2023-11-01 13:17] LABS: Interpretation Negative (Negative)
== END ==
PROVIDERS: PCP Family Medicine; Referring Provider Family Medicine; Visit Provider Family Medicine
DX: M47.25 Other spondylosis with radiculopathy, thoracolumbar region (principal); M47.815 Spondylosis without myelopathy or radiculopathy, thoracolumbar region; M54.50 Low back pain, unspecified; G89.29 Other chronic pain; I10 Essential (primary) hypertension; E78.5 Hyperlipidemia, unspecified; R10.13 Epigastric pain; H52.10 Myopia, unspecified eye; G62.9 Polyneuropathy, unspecified
CPT/HCPCS: 36415; 72100; 80053; 82043; 82570; 82607; 83013; 83690; 84443

== ENCOUNTER → 2023-11-07 09:59 | Outpatient (CLI) | payer OTHER, SELFPAY ==
[2021-11-13 03:21] VITALS: BMI 20.7
--- NOTE | 2023-11-07 11:30 | DI.CT.S_ITS ---
PROCEDURE: CT ABDOMEN PELVIS W CON INDICATIONS: chronic abdominal pain TECHNIQUE: After the administration of intravenous contrast, axial sections acquired from the lung bases to the pubic symphysis. Coronal and sagittal reformats were performed. For radiation dose reduction, the following was used: automated exposure control, adjustment of mA and/or kV according to patient size. COMPARISON: [facility], CT, CT ABDOMEN PELVIS W CON, 02/27/2023, 14:15. FINDINGS: Image quality: Diagnostic. Lower Chest: No significant findings. ABDOMEN: Liver: No solid mass. Hepatic steatosis. Gallbladder: No radiopaque gallstones or wall thickening. Biliary ducts: No biliary dilation. Pancreas: There is peripancreatic fluid predominantly in the lesser sac. No significant peripancreatic inflammation. New 1.2 cm hypodensity at the pancreatic head/neck (11/06). No pancreatic ductal dilatation. Spleen: Size is within normal limits. Adrenal Glands: No adrenal nodules. Kidneys and Ureters: No hydronephrosis. No solid mass. No complex renal cystic lesion which requires follow up. Stomach and Bowel: Normal colonic caliber, without significant wall thickening. Moderate hiatal hernia. Peritoneum: No abnormal intraperitoneal fluid. No free air. Ventral Wall: No significant ventral hernia. Abdominal Nodes: No retroperitoneal or mesenteric adenopathy by size criteria. Vessels: Aorta and inferior vena cava are normal in size. PELVIS: Pelvic Organs: IUD is in place. Simple appearing right adnexal structure measuring 2.7 cm. Bladder: No bladder wall thickening, accounting for underdistention. Pelvic Nodes: No enlarged lymph nodes. Miscellaneous: No inguinal hernias are seen. Bones: No aggressive osseous abnormality. IMPRESSION: Persistent peripancreatic free fluid in the lesser sac. No definite signs of peripancreatic inflammation or pancreatic necrosis to suggest acute pancreatitis. New 1.2 centimeter pancreatic head/neck hypodensity. Recommend further evaluation with contrast-enhanced MRI or CT pancreatic protocol. Hepatic steatosis. Approved by: Brigid Maria M.D. on 11/08/2023 at 23:29
== END ==
LOC: CT 10:01
PROVIDERS: PCP Family Medicine; Referring Provider Family Medicine; Visit Provider Family Medicine
DX: K86.9 Disease of pancreas, unspecified (principal); K76.0 Fatty (change of) liver, not elsewhere classified; R10.13 Epigastric pain
CPT/HCPCS: 74177; Q9967

== ENCOUNTER → 2023-11-23 10:42 | Outpatient (CLI) | payer OTHER, SELFPAY ==
[2021-11-13 03:21] VITALS: BMI 20.7
--- NOTE | 2023-11-23 10:42 | DI.MRI.S_ITS ---
PROCEDURE: MR AB PANCREATIC/MRCP PROTOCOL INDICATIONS: 1.2 cm hypodensity at the pancreatic head/neck TECHNIQUE: Coronal HASTE through the abdomen, axial 2-D FLASH in- and [id number], and breath-hold T2 FSE with fat saturation through the biliary system and pancreas. Oblique coronal and axial thin-slice HASTE, radial thick-slab HASTE centered on the extrahepatic bile ducts. Intravenous secretin: Not requested. COMPARISON: [facility], CT, CT ABDOMEN PELVIS W CON, 02/27/2023, 14:15. Merged With [facility], CT, CT ABDOMEN PELVIS W CON, 11/07/2023, 11:20. FINDINGS: Image quality: Diagnostic Lower chest: Not well evaluated on MRI. There is a moderate hiatal hernia which is partially seen. Liver: Hepatic steatosis, at least moderate. No suspicious focal hypervascular lesion. Gallbladder and biliary system: Nondilated, unremarkable appearance of the gallbladder Pancreas: Mild peripancreatic inflammation. The pancreatic duct is nondilated. No evidence of necrotic parenchyma. Questionable loss of fatty clefts within the pancreatic body. More focal diffusion signal is particularly seen at the head. A possible cystic lesion versus pseudocyst is seen measuring 1.4 x 1.2 x 1.4 cm at the pancreas neck (11/18, 12/28). There are internal septations, but with no nodular enhancement. Contents are likely complex. Spleen: Nonenlarged Adrenals: No discrete nodules Kidneys: No discrete mass or hydronephrosis Vessels and lymph nodes: No acute or suspicious lymph nodes identified. Suspected atherosclerotic calcifications are present. The distal main portal vein appears patent, however there may be narrowing at the confluence Bowel and peritoneum: No evidence of pathologic ascites. No small bowel obstruction. Body wall: Unremarkable Bones: No suspicious osseous finding. IMPRESSION: Persistent peripancreatic edema and inflammation, possibly acute on chronic pancreatitis. In this clinical context, the complex cystic lesion measuring 1.4 x 1.2 cm at the pancreatic neck may represent a pseudocyst. Differential includes a cystic lesion such as IPMN. Consider follow-up MRI in 6 months or sooner. Questionable loss of pancreatic fatty clefts in the edematous pancreatic body. Differential also includes autoimmune pancreatitis, in addition to more common causes, consider correlation with IgG4 lab values. Heterogeneity and narrowing of the portal vein starting at the portal confluence. This may represent thrombus or inflammation related narrowing. Consider correlation with Doppler ultrasound. Hepatic steatosis. Other findings as above. Dictated by: Joel Benavides M.D. on 11/23/2023 at 12:24 Approved by: Joel Benavides M.D. on 11/23/2023 at 12:33
== END ==
LOC: MRI 10:42
PROVIDERS: PCP Family Medicine; Referring Provider Family Medicine; Visit Provider Family Medicine
DX: K85.90 Acute pancreatitis without necrosis or infection, unspecified (principal); Q45.3 Other congenital malformations of pancreas and pancreatic duct; K76.0 Fatty (change of) liver, not elsewhere classified; K44.9 Diaphragmatic hernia without obstruction or gangrene
CPT/HCPCS: 74183; A9579

== ENCOUNTER 2023-12-14 12:57 | Day surgery (SDC) | payer OTHER, SELFPAY ==
[2021-11-13 03:21] VITALS: BMI 20.7
--- NOTE | 2023-12-14 | PATH_ITS ---
[facility] Accession Number: [id number] No. of containers..01 Tissue . 01 Material submitted: . esophagus, E-G Junction - GE JUNCTION . 01 Diagnosis: GE JUNCTION: Squamous mucosa with changes compatible with reflux. No evidence of eosinophilic esophagitis. STO 12/19/2023 [facility] Local . 01 Electronically signed: . Eddie Hardy MD, Pathologist NPI- [id number] . 01 Gross description: . GE JUNCTION: Received in formalin are 2 fragment(s) of bull, soft tissue measuring 0.1 x 0.1 x 0.1 cm to 0.3 x 0.2 x 0.1 cm submitted entirely in 1 cassette(s) /KAYKAY 12/19/[address] [place] [address] . 01 Microscopic: . GE JUNCTION: An ABPAS stain was performed to evaluate for fungal organisms, and is negative. The control stains appropriately. . 01 Pathologist provided ICD-10: K21.00 . 01 CPT . 780541, [id number] Specimen Comment: A courtesy copy of this report has been sent to [phone] Performed at: 01 [facility] [address] [place] [address], [place], [place] [id number] MD Eddie Hardy MD Phone: [phone]
[2023-12-14 13:15] VITALS: BP 133/91; PULSE 107; RESP 17; TEMP 36.5; O2SAT 99
[2023-12-14] MEDS: LACTATED RINGERS 1,000 ML 42 ML IV (13:26)
--- NOTE | 2023-12-14 13:51 | PM.PREOP ---
Pre-operative Note Interval Note History & Physical reviewed/Exam performed by Physician: Yes Changes to H&P: No
[2023-12-14 14:46] VITALS: BP 131/86; PULSE 96; RESP 18; TEMP 36.3; O2SAT 93
[2023-12-14 14:51] VITALS: BP 126/86; PULSE 95; RESP 14; O2SAT 92
--- NOTE | 2023-12-14 14:52 | PM.OP.EC ---
Operative Date/Time/Diagnoses Date of procedure: 12/14/23 Time of procedure: 14:53 Pre-op diagnosis: Abdominal pain Post-op diagnosis: other (Esophageal stricture) Procedure & Clinicians Study performed: Diagnostic esophagogastroduodenoscopy, screening colonoscopy Same procedure as scheduled: Yes Indications: 48-year-old woman with esophageal dysphagia here for diagnostic EGD and screening colonoscopy Surgeon: Shawn Bowre Procedure Notes Procedure in detail: The history and physical was performed/updated and the patient is ASA class is 2. The procedure was discussed in detail with the patient. Potential risks complications including infection, bleeding, missed diagnosis, perforation, need for surgery, and were explained. Their questions were answered and informed consent was obtained. Patient placed in left lateral decubitus position. Time out was performed. Procedural sedation was administered by Anesthesia. A bite block was placed. the scope was inserted into the mouth and advanced through the esophagus and into the stomach. the pylorus was intubated and the duodenum was examined to the 2nd portion.. The scope was retroflexed within the stomach. The stomach was then decompressed and scope pulled back to the GE junction. The scope was then removed Examination began with a thorough inspection of the perianal area there was no evidence of fissures, fistulae, external hemorrhoids or cutaneous malignancy. The colonoscopy scope was then placed into the anal canal and was advanced to the cecum, which was identified by the ileocecal valve, the appendiceal orifice and the confluence of the taenia. The scope was then slowly withdrawn examining colon thoroughly in all directions, irrigating it of any residual stool. FINDINGS -distal esophageal stricture. EGD scope capable of passing into the stomach but clearly narrowed. Dilated to 19 mm diameter with balloon dilator under direct visualization -biopsy of GE junction performed with forceps -normal colonoscopy. The patient tolerated the procedure well. They will be discharged once criteria are met. The prep was of fair quality. The withdrawl time was 6 minutes. Specimen(s): other (GE junction) Impression: Distal esophageal stricture Post-procedure Recommendations: Colonscopy in 10 years Disposition: same day surgery
[2023-12-14 14:58] VITALS: BP 129/84; PULSE 95; RESP 14; O2SAT 95
[2023-12-14 15:03] VITALS: BP 114/73; PULSE 92; RESP 14; O2SAT 94
== END 2023-12-14 15:32 | disposition home or self-care (01) ==
PROVIDERS: PCP Family Medicine; Referring Provider Surgery; Visit Provider Surgery
PROC: 0DJ08ZZ Inspection of Upper Intestinal Tract, Via Natural or Artificial Opening Endoscopic (ICD-10-PCS; CPT 43235; principal; 2023-12-14 13:45)
PROC: 0DJD8ZZ Inspection of Lower Intestinal Tract, Via Natural or Artificial Opening Endoscopic (ICD-10-PCS; CPT 45378; 2023-12-14 13:45)
DX: R10.9 Unspecified abdominal pain (principal); R13.10 Dysphagia, unspecified
CPT/HCPCS: 43249; 45378; 43239; J2704

== ENCOUNTER → 2024-01-01 13:08 | Outpatient (CLI) | payer OTHER, SELFPAY ==
[2021-11-13 03:21] VITALS: BMI 20.7
--- NOTE | 2024-01-01 13:10 | DI.NM.S_ITS ---
PROCEDURE: NM HIDA WITH CCK PHARMACEUTICAL: 5.5 mCi Tc-99m mebrofenin IV; 1.4 mcg CCK IV. INDICATIONS: abodminal pain TECHNIQUE: Following intravenous administration of Tc-99m mebrofenin, sequential anterior abdominal images were obtained. To evaluate the contractile response of the gallbladder in response to Cholecystokinin (CCK), sincalide (0.02 ?g/kg) was administered by slow intravenous infusion approximately 60 minutes after the administration of the radiopharmaceutical. Sequential imaging was continued for 30 minutes after the start of CCK infusion. Gallbladder ejection fraction was calculated. COMPARISON: None. FINDINGS: Biliary scan: There is normal tracer uptake and excretion by the liver. There is normal visualization of the intrahepatic ducts, common bile duct, and gallbladder. There is normal tracer transit into the duodenum. CCK stimulation: There is normal contractile response of the gallbladder to CCK infusion. The calculated gallbladder ejection fraction is 56 ; normal values are above 35%. It has been shown that any patient abdominal pain after CCK administration is related to the rate of CCK injection, rather than to any underlying gallbladder disease (Clinical Nuclear Medicine 2012; 37: 63-70. Journal of Nuclear Medicine 2014; 55: 1-9). IMPRESSION: No evidence of acute or chronic cholecystitis. Dictated by: Moreno Weaver M.D. on 01/01/2024 at 15:50 Approved by: Moreno Weaver M.D. on 01/01/2024 at 15:59
== END ==
PROVIDERS: PCP Family Medicine; Referring Provider Surgery; Visit Provider Surgery
DX: R10.9 Unspecified abdominal pain (principal)
CPT/HCPCS: 78227; A9537; J2805

== ENCOUNTER → 2024-06-10 16:40 | Outpatient (CLI) | payer OTHER, SELFPAY ==
[2021-11-13 03:21] VITALS: BMI 20.7
--- NOTE | 2024-06-10 16:42 | DI.MG.S_ITS ---
BILATERAL DIGITAL SCREENING MAMMOGRAM 3D/2D WITH CAD: 06/10/2024 CLINICAL: Routine screening. Family history of breast cancer. Comparison is made to exams dated: 11/30/2022 mammogram, 08/10/2020 mammogram, and 01/17/2019 mammogram - [facility]. The breasts are heterogeneously dense, which may obscure small masses (category c / 51-75% glandular tissue). Current study was also evaluated with a Computer Aided Detection (CAD) system. No significant masses, calcifications, or other findings are seen in either breast. There has been no significant interval change. IMPRESSION: NEGATIVE There is no mammographic evidence of malignancy. A 1 year screening mammogram is recommended. Based on Tyrer-Cuzick model (a risk assessment model), the patient's lifetime risk is 23.4% and her 10 year risk is 4.8%. If a patient has an elevated risk, a more comprehensive evaluation should be considered and/or a referral to a genetic counselor. The [place] [employer], [place], and NCCN Guidelines advise the consideration of Breast MRI as an adjunct to screening mammography in patients whose Lifetime risk to develop breast cancer is 20% or higher. This exam was interpreted at Station ID: [id number]. NOTE: For mammograms, a report in lay terms will be sent to the patient. Approximately 15% of breast malignancies will not be visualized mammographically. In the management of a palpable breast mass, a negative mammogram must not discourage biopsy of a clinically suspicious lesion. Electronically Signed By: Kristan cuello/rajinder:06/12/2024 11:56:04 copy to: Helena Neal letter sent: Normal Exam ACR BI-RADS Category 1: Negative
--- NOTE | 2024-06-10 16:42 | DI.MRI.S_ITS ---
PROCEDURE: MR AB PANCREATIC/MRCP PROTOCOL INDICATIONS: pancreatic nodule f/u TECHNIQUE: Coronal HASTE through the abdomen, axial 2-D FLASH in- and [id number], and breath-hold T2 FSE with fat saturation through the biliary system and pancreas. Oblique coronal and axial thin-slice HASTE, radial thick-slab HASTE centered on the extrahepatic bile ducts. Intravenous secretin: Not requested. COMPARISON: [facility], , MR AB PANCREATIC/MRCP PROTOCOL, 11/23/2023, 10:58. FINDINGS: Image quality: Diagnostic. Gallbladder: No gallstones or wall thickening. Biliary ducts: No biliary dilation. Pancreas: Interval growth of the pancreatic cystic mass in the pancreatic neck, measuring 3.7 x 5.1 centimeter. There are peripheral nodules within this mass, new from prior. Ectasia of the pancreatic duct distal to this mass. OTHER: Lung bases: Moderate hiatal hernia.. Liver: No solid mass. Spleen: Size is within normal limits. Adrenal Glands: No adrenal nodules. Kidneys and Ureters: No hydronephrosis. No solid mass. No complex renal cystic lesion which requires follow up. Stomach and Bowel: Normal colonic caliber, without significant wall thickening. Peritoneum: No abnormal intraperitoneal fluid. No free air. Ventral Wall: No hernia. Abdominal Nodes: No retroperitoneal or mesenteric adenopathy by size criteria. Vessels: Aorta and inferior vena cava are normal in size. Bones: No aggressive osseous abnormality. IMPRESSION: Interval growth of the pancreatic cystic mass in the neck, with peripheral nodules which are new from prior. Additionally, there is ectasia of the pancreatic duct distal to this mass. Recommend GI referral for endoscopic evaluation/EUS for pathologic characterization. A call report was initiated for this examination. Dictated by: Moreno Weaver M.D. on 06/11/2024 at 9:50 Approved by: Moreno Weaver M.D. on 06/11/2024 at 10:07
== END ==
PROVIDERS: PCP Family Medicine; Referring Provider Family Medicine; Visit Provider Family Medicine
DX: Z12.31 Encounter for screening mammogram for malignant neoplasm of breast (principal); Z80.3 Family history of malignant neoplasm of breast; R92.333 Mammographic heterogeneous density, bilateral breasts; K86.2 Cyst of pancreas; K85.20 Alcohol induced acute pancreatitis without necrosis or infection; I10 Essential (primary) hypertension; E78.5 Hyperlipidemia, unspecified; R10.13 Epigastric pain; K44.9 Diaphragmatic hernia without obstruction or gangrene
CPT/HCPCS: 74183; 77063; 77067; A9579

== ENCOUNTER 2024-07-24 13:55 | Emergency (ER) | payer OTHER, SELFPAY ==
[2021-11-13 03:21] VITALS: BMI 20.7
[2024-07-24] VITALS (31 sets, daily range): BP systolic 114–145; BP diastolic 59–98; PULSE 82–137; RESP 12–26; TEMP 36.8–36.9; O2SAT 97–100; BMI 24.3
--- NOTE | 2024-07-24 14:10 | EKG_ITS ---
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
--- NOTE | 2024-07-24 14:27 | ED_ITS ---
HPI - GI Bleed <DO Janet Humphrey Last Filed: 07/25/24 07:01> General Chief complaint: GI Bleed Stated complaint: pancreatitis, vomiting blood, sent by [facility] Time Seen by Provider: 07/24/24 14:13 Source: patient Mode of arrival: Wheelchair History of Present Illness HPI Narrative: Patient is a 48-year-old female. Has a history of pancreatitis. She states that her prior episodes have been caused by drinking alcohol. She states that earlier this month she was admitted to an outside facility for pancreatitis. Had a procedure performed where they biopsied a cyst on her pancreas. States her pain was controlled while she was an inpatient. She was discharged approximately 10 days ago. She was had continued discomfort in her upper abdomen and now general abdomen. Is still having bowel movements. No urinary symptoms. This morning she vomited and had a small amount of blood in the vomit. She was not been able to tolerate solid oral intake but has been able to tolerate some fluids. She had a CT scan performed 2 days ago. This is ordered by GI providers. Patient states that she now has 2 cysts on her pancreas after that CT scan. Related Data Home Medications Medication Instructions Recorded Confirmed famotidine 10 mg tablet (Pepcid AC) 10 mg PO DAILY 11/15/23 07/24/24 multivit with min-folic acid PO 11/15/23 07/24/24 [Centrum Adults] Previous Rx's Medication Instructions Recorded ondansetron 4 mg disintegrating 4 mg PO Q8H PRN nausea and 06/19/23 tablet vomiting #14 tabs losartan 100 mg tablet 100 mg PO DAILY #90 tabs 10/30/23 rosuvastatin 10 mg tablet 10 mg PO DAILY #90 tabs 10/30/23 meloxicam 7.5 mg tablet See Rx Instructions PO DAILY #90 01/22/24 tabs amlodipine 5 mg tablet 5 mg PO DAILY #90 tabs 06/10/24 Allergies Allergy/AdvReac Type Severity Reaction Status Date / Time No Known Drug Allergies Allergy Verified 07/24/24 13:33 Review of Systems <DO Janet Humphrey Last Filed: 07/25/24 07:01> Review of Systems ROS Unobtainable: All systems reviewed & are unremarkable except as noted in HPI and below Patient History <DO Janet Humphrey Last Filed: 07/25/24 07:01> Medical History IUD (intrauterine device) in place Myopia Anesthesia complication GERD (gastroesophageal reflux disease) HTN (hypertension) Alcohol abuse Hyperlipidemia Acne Infertility Polycystic ovarian syndrome Surgical History (Updated 12/14/23 @ 13:27 by Christianne Cordova RN) Anesthesia Status post surgical removal of both fallopian tubes (~2011) Status post delivery (~11/03/13) Family History Mother Hyperlipidemia Hypertension Father Cancer Social History marital status: unmarried,single number of children: 2 household members: children lives independently: Yes occupational status: employed Smoking Status: Current every day smoker quit status: considering quitting alcohol intake: current substance use type: does not use Smoking Status: Current every day smoker tobacco type: cigarettes alcohol intake frequency: a few times a week Substance Use Type: marijuana Exam <Elgin Garcia DO - Last Filed: 07/25/24 07:01> Initial Vital Signs Initial Vital Signs: Vital Signs Temperature 98.4 F 07/24/24 13:58 Pulse Rate 137 H 07/24/24 13:58 Respiratory Rate 20 07/24/24 13:58 Blood Pressure 126/81 07/24/24 13:58 Pulse Oximetry 99 07/24/24 13:58 Oxygen Delivery Method Room Air 07/24/24 13:58 Const General: cooperative, comfortable and No ill appearing HENMT Head: normal to inspection and normocephalic Resp Effort & Inspection: normal respiratory effort Auscultation: clear to auscultation bilaterally Cardio Rate: regular rate Rhythm: regular rhythm GI Inspection: normal to inspection and non-distended Palpation: soft, No firm, guarding, No rigid and tender Neuro General: patient alert, patient awake and moves all extremities Extrem General: normal to inspection and capillary refill normal <Shweta Kraus MD - Last Filed: 07/25/24 05:06> Initial Vital Signs Initial Vital Signs: Vital Signs Temperature 98.4 F 07/24/24 13:58 Pulse Rate 137 H 07/24/24 13:58 Respiratory Rate 20 07/24/24 13:58 Blood Pressure 126/81 07/24/24 13:58 Pulse Oximetry 99 07/24/24 13:58 Oxygen Delivery Method Room Air 07/24/24 13:58 Course <Elgin Garcia DO - Last Filed: 07/25/24 07:01> Orders Ordered: Discontinued Medications Hydromorphone HCl (Hydromorphone 1 Mg Inj) 1 mg IV NOW ONE Stop: 07/24/24 14:28 Last Admin: 07/24/24 14:54 Dose: 1 mg Documented By: ROOSEVELT Hydromorphone HCl (Hydromorphone 0.5 Mg Inj) 0.5 mg IV NOW ONE Stop: 07/24/24 18:19 Last Admin: 07/24/24 18:27 Dose: 0.5 mg Documented By: ROOSEVELT Hydromorphone HCl (Hydromorphone 0.5 Mg Inj) 0.5 mg IV NOW ONE Stop: 07/24/24 20:56 Last Admin: 07/24/24 21:02 Dose: 0.5 mg Documented By: ROBER Hydromorphone HCl (Hydromorphone 1 Mg Inj) 1 mg IV NOW ONE Stop: 07/24/24 21:52 Last Admin: 07/24/24 22:12 Dose: 1 mg Documented By: ROBER Sodium Chloride (Normal Saline 0.9%) 1,000 mls @ 125 mls/hr IV CONT MK Last Infusion: 07/24/24 22:22 Dose: Infused Documented By: Infusion: 07/24/24 22:21 Dose: 0 mls/hr Documented By: Admin: 07/24/24 18:27 Dose: 125 mls/hr Documented By: ROOSEVELT Ondansetron HCl (Ondansetron 4 Mg/2 Ml Inj) 4 mg IV NOW PRN PRN Reason: Nausea And Vomiting Last Admin: 07/24/24 14:54 Dose: 4 mg Documented By: ROOSEVELT Ondansetron HCl (Ondansetron 4 Mg Odt) 4 mg SL NOW PRN PRN Reason: Nausea And Vomiting Last Admin: 07/24/24 21:02 Dose: 4 mg Documented By: ROBER Pantoprazole Sodium (Pantoprazole 40 Mg Vial) 80 mg IV NOW ONE Stop: 07/24/24 14:11 Last Admin: 07/24/24 14:53 Dose: 80 mg Documented By: ROOSEVELT Vital Signs Vital signs: Vital Signs - 8 hr 07/24/24 21:30 07/24/24 22:00 07/24/24 22:05 Temperature Pulse Rate 108 H 109 H 113 H Respiratory Rate Blood Pressure Pulse Oximetry 97 98 98 07/24/24 22:11 07/24/24 22:11 07/24/24 22:12 Temperature 98.3 F Pulse Rate 120 H Respiratory Rate 12 Blood Pressure 140/82 Pulse Oximetry 99 <Shweta Kraus MD - Last Filed: 07/25/24 05:06> Orders Ordered: Discontinued Medications Hydromorphone HCl (Hydromorphone 1 Mg Inj) 1 mg IV NOW ONE Stop: 07/24/24 14:28 Last Admin: 07/24/24 14:54 Dose: 1 mg Documented By: ROOSEVELT Hydromorphone HCl (Hydromorphone 0.5 Mg Inj) 0.5 mg IV NOW ONE Stop: 07/24/24 18:19 Last Admin: 07/24/24 18:27 Dose: 0.5 mg Documented By: ROOSEVELT Hydromorphone HCl (Hydromorphone 0.5 Mg Inj) 0.5 mg IV NOW ONE Stop: 07/24/24 20:56 Last Admin: 07/24/24 21:02 Dose: 0.5 mg Documented By: ROBER Hydromorphone HCl (Hydromorphone 1 Mg Inj) 1 mg IV NOW ONE Stop: 07/24/24 21:52 Last Admin: 07/24/24 22:12 Dose: 1 mg Documented By: ROBER Sodium Chloride (Normal Saline 0.9%) 1,000 mls @ 125 mls/hr IV CONT MK Last Infusion: 07/24/24 22:22 Dose: Infused Documented By: Infusion: 07/24/24 22:21 Dose: 0 mls/hr Documented By: Admin: 07/24/24 18:27 Dose: 125 mls/hr Documented By: ROOSEVELT Ondansetron HCl (Ondansetron 4 Mg/2 Ml Inj) 4 mg IV NOW PRN PRN Reason: Nausea And Vomiting Last Admin: 07/24/24 14:54 Dose: 4 mg Documented By: ROOSEVELT Ondansetron HCl (Ondansetron 4 Mg Odt) 4 mg SL NOW PRN PRN Reason: Nausea And Vomiting Last Admin: 07/24/24 21:02 Dose: 4 mg Documented By: ROBER Pantoprazole Sodium (Pantoprazole 40 Mg Vial) 80 mg IV NOW ONE Stop: 07/24/24 14:11 Last Admin: 07/24/24 14:53 Dose: 80 mg Documented By: ROOSEVELT Vital Signs Vital signs: Vital Signs - 8 hr 07/24/24 21:30 07/24/24 22:00 07/24/24 22:05 Temperature Pulse Rate 108 H 109 H 113 H Respiratory Rate Blood Pressure Pulse Oximetry 97 98 98 07/24/24 22:11 07/24/24 22:11 07/24/24 22:12 Temperature 98.3 F Pulse Rate 120 H Respiratory Rate 12 Blood Pressure 140/82 Pulse Oximetry 99 MDM - GI Bleed <Elgin Garcia DO - Last Filed: 07/25/24 07:01> Medical Records Attestation: I reviewed the patient's medical records. Lab Data Attestation: I reviewed the patient's lab results. 07/24/24 14:20 07/24/24 14:20 Labs: Lab Results 07/24/24 07/24/24 Range/Units 14:20 15:35 WBC 25.8 H (4.5-11.0) X10^3/uL RBC 4.23 (4.0-5.2) X10^6/uL Hgb 12.5 (12.0-16.0) g/dL Hct 37.6 (36-46) % MCV 89.0 (80-100) fL MCH 29.5 (26-34) PG MCHC 33.1 (30-36) % RDW 15.1 H (11.6-14.8) % Plt Count 604 H (150-400) X10^3/uL Neut % (Auto) Not Reportable Lymph % (Auto) Not Reportable [place] % (Auto) Not Reportable Eos % (Auto) Not Reportable Baso % (Auto) Not Reportable Lymph # (Auto) Not Reportable [place] # (Auto) Not Reportable Baso # (Auto) Not Reportable Total Counted 100 Seg Neutrophils % 78.0 H (38-70) % Lymphocytes % (Manual) 8.0 L (25-45) % Atypical Lymphs % 3.0 H ( - 0) % Monocytes % (Manual) 10.0 (2-11) % Eosinophils % (Manual) 1.0 L (2-4) % Neutrophils # (Manual) 88944 H (9843-1640) /uL RBC Morphology Normal morphology PT 18.6 H (9.4-12.5) SECONDS INR 1.7 H (0.9-1.3) APTT 39 H (25.1-36.5) SECONDS Sodium 134 L (137-145) mmol/L Potassium 3.7 (3.4-5.1) mmol/L Chloride 103 (98-107) mmol/L Carbon Dioxide 15 L (22-32) mmol/L BUN 5 L (7-17) mg/dL Creatinine 0.40 L (0.52-1.04) mg/dL Estimated GFR > 60 (>60) mL/min BUN/Creatinine Ratio 12.5 (6-22) Glucose 117 H (70-100) mg/dL Calcium 10.6 H (8.4-10.2) mg/dL Total Bilirubin 0.8 (0.2-1.3) mg/dL AST 23 (14-36) IU/L ALT 16 (<35) IU/L Alkaline Phosphatase 146 H (38-126) U/L Total Protein 8.0 (6.3-8.2) g/dL Albumin 3.7 (3.5-5.0) g/dL Globulin 4.3 H (1.7-4.1) g/dL Albumin/Globulin Ratio 0.9 L (1.0-2.8) Lipase 203 (23-300) U/L Urine Color Yellow Urine Appearance Clear Urine pH 6.0 (4.5-8.0) Ur Specific [place] >=1.030 H (1.000-1.035) Urine Protein 2+ H (Negative) Urine Glucose (UA) Negative (Negative) g/dL Urine Ketones 3+ H (NEGATIVE) Urine Occult Blood Trace-intact (Negative) Urine Nitrate Negative (Negative) Urine Bilirubin 2+ H (NEGATIVE) Ur Bilirubin Confirm Negative (Negative) Urine Urobilinogen 1.0 (0.2) E.U./dL Ur Leukocyte Esterase Negative (NEGATIVE) Urine RBC 0-1/hpf (0-5/HPF) Urine WBC 1-5/hpf (0-5/HPF) Ur Squamous Epith Cells 5-10 /hpf H (0-5/HPF) Urine Bacteria Many (>30) H (None) Hyaline Casts 5-10/lpf (None) Ur Culture Indicated? Cult not indicated Vol Urine Centrifuged 10ml (spun) Blood Type O Positive Antibody Screen Negative Point of Care Testing Test Results Negative Urine Dip Bedside Urine Glucose Negative Bedside Urine Bilirubin - Negative Bedside Urine Ketone +++ 80 Urine Specific [place] 1.030 Bedside Urine Occult Blood +/- Bedside Urine pH 6.0 Bedside Urine Protein ++ 100 Bedside Urine Urobilinogen - Negative Bedside Urine Nitrite - Negative Bedside Urine Leukocytes +/- 15 Esterase ECG Data Attestation: I personally reviewed and interpreted this ECG as follows: Interpretation: Sinus tachycardia Ventricular rate 129 Normal axis Normal QRS Normal QTC No ST T wave changes MDM Narrative Medical decision making narrative: Patient returns today for generalized abdominal pain. Recent admission to hospital for pancreatitis with pancreatic cyst. Had a CT scan done 2 days ago. Review of the shows that there was potential increase in the size of that cyst. Her lipase is normal today. Repeat CT scan shows enlargement of the cyst even greater than what it was 2 days ago. Her pain is improved with medications. I do feel the patient requires transfer for further GI management. Care turned over to Dr. Kraus to follow-up and disposition. <Shweta Kraus MD - Last Filed: 07/25/24 05:06> Lab Data Labs: Lab Results 07/24/24 07/24/24 Range/Units 14:20 15:35 WBC 25.8 H (4.5-11.0) X10^3/uL RBC 4.23 (4.0-5.2) X10^6/uL Hgb 12.5 (12.0-16.0) g/dL Hct 37.6 (36-46) % MCV 89.0 (80-100) fL MCH 29.5 (26-34) PG MCHC 33.1 (30-36) % RDW 15.1 H (11.6-14.8) % Plt Count 604 H (150-400) X10^3/uL Neut % (Auto) Not Reportable Lymph % (Auto) Not Reportable [place] % (Auto) Not Reportable Eos % (Auto) Not Reportable Baso % (Auto) Not Reportable Lymph # (Auto) Not Reportable [place] # (Auto) Not Reportable Baso # (Auto) Not Reportable Total Counted 100 Seg Neutrophils % 78.0 H (38-70) % Lymphocytes % (Manual) 8.0 L (25-45) % Atypical Lymphs % 3.0 H ( - 0) % Monocytes % (Manual) 10.0 (2-11) % Eosinophils % (Manual) 1.0 L (2-4) % Neutrophils # (Manual) 16493 H (9603-3466) /uL RBC Morphology Normal morphology PT 18.6 H (9.4-12.5) SECONDS INR 1.7 H (0.9-1.3) APTT 39 H (25.1-36.5) SECONDS Sodium 134 L (137-145) mmol/L Potassium 3.7 (3.4-5.1) mmol/L Chloride 103 (98-107) mmol/L Carbon Dioxide 15 L (22-32) mmol/L BUN 5 L (7-17) mg/dL Creatinine 0.40 L (0.52-1.04) mg/dL Estimated GFR > 60 (>60) mL/min BUN/Creatinine Ratio 12.5 (6-22) Glucose 117 H (70-100) mg/dL Calcium 10.6 H (8.4-10.2) mg/dL Total Bilirubin 0.8 (0.2-1.3) mg/dL AST 23 (14-36) IU/L ALT 16 (<35) IU/L Alkaline Phosphatase 146 H (38-126) U/L Total Protein 8.0 (6.3-8.2) g/dL Albumin 3.7 (3.5-5.0) g/dL Globulin 4.3 H (1.7-4.1) g/dL Albumin/Globulin Ratio 0.9 L (1.0-2.8) Lipase 203 (23-300) U/L Urine Color Yellow Urine Appearance Clear Urine pH 6.0 (4.5-8.0) Ur Specific [place] >=1.030 H (1.000-1.035) Urine Protein 2+ H (Negative) Urine Glucose (UA) Negative (Negative) g/dL Urine Ketones 3+ H (NEGATIVE) Urine Occult Blood Trace-intact (Negative) Urine Nitrate Negative (Negative) Urine Bilirubin 2+ H (NEGATIVE) Ur Bilirubin Confirm Negative (Negative) Urine Urobilinogen 1.0 (0.2) E.U./dL Ur Leukocyte Esterase Negative (NEGATIVE) Urine RBC 0-1/hpf (0-5/HPF) Urine WBC 1-5/hpf (0-5/HPF) Ur Squamous Epith Cells 5-10 /hpf H (0-5/HPF) Urine Bacteria Many (>30) H (None) Hyaline Casts 5-10/lpf (None) Ur Culture Indicated? Cult not indicated Vol Urine Centrifuged 10ml (spun) Blood Type O Positive Antibody Screen Negative Point of Care Testing Test Results Negative Urine Dip Bedside Urine Glucose Negative Bedside Urine Bilirubin - Negative Bedside Urine Ketone +++ 80 Urine Specific [place] 1.030 Bedside Urine Occult Blood +/- Bedside Urine pH 6.0 Bedside Urine Protein ++ 100 Bedside Urine Urobilinogen - Negative Bedside Urine Nitrite - Negative Bedside Urine Leukocytes +/- [address] scan - abdomen/pelvis: Radiologist's Impression: PROCEDURE: CT ABDOMEN PELVIS W CON INDICATIONS: History of pancreatitis, known cyst, worsening abdominal krishna TECHNIQUE: After the administration of intravenous contrast, axial sections acquired from the lung bases to the pubic symphysis. Coronal and sagittal reformats were performed. For radiation dose reduction, the following was used: automated exposure control, adjustment of mA and/or kV according to patient size. COMPARISON: [facility], CT, CT ABDOMEN PELVIS WITH CONTRAST, 07/12/2024, 12:01. [facility], CT, CT ABDOMEN PELVIS W CON, 11/07/2023, 11:20. [facility], CT, CT ABDOMEN PANCREATIC PROTOCOL, 07/22/2024, 16:42. FINDINGS: Image quality: Diagnostic Lower chest: Unremarkable lung bases. Moderate hiatal hernia. Liver: Unremarkable Gallbladder and biliary system: Sludge filled. No biliary ductal dilation. Pancreas: Multiloculated cystic mass measuring up to 6.5 x 6 cm, continued increase in size since 10/18/2023, 07/12/2024, and 07/22/2024. Surrounding edematous fat stranding is present. This occludes the SMV and portal confluence. This contacts the common femoral artery about 180?, and partially encases the SMA (greater than 180?) There is adjacent wall thickening, likely reactive in inflammatory of the duodenum. The medial margin of the lesion contacts the liver at the fady hepatis and caudate lobe. Spleen: Nonenlarged Adrenals: No discrete nodules Kidneys: No solid mass. No hydronephrosis. Vessels and lymph nodes: No abdominal aortic aneurysm. No pathologic lymph nodes by size criteria. Numerous portal venous varices. Bowel and peritoneum: No drainable ascites elsewhere. No small bowel obstruction. Body wall: Unremarkable Pelvis: IUD in place. Adnexal structures are unremarkable on limited CT evaluation. Bladder is unremarkable, under distended. Bones: Degenerative changes, mild. IMPRESSION: Continued increase in size of complex multiloculated cystic lesion centered in the pancreas, with vascular involvement as above. This also contacts the medial margin of the liver at multiple locations. Increase in size is seen on multiple studies described above, highly concerning. Sterility is indeterminate on imaging. Consider referral for drainage. This may be related to pancreatitis given original CT findings on 11/07/2023, though a cystic malignancy is possible. 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 Other findings above. Dictated by: Joel Benavides M.D. on 07/24/2024 at 17:12 Approved by: Joel Benavides M.D. on 07/24/2024 at 17:21 MDM Narrative Medical decision making narrative: Patient returns today for generalized abdominal pain. Recent admission to hospital for pancreatitis with pancreatic cyst. Had a CT scan done 2 days ago. Review of the shows that there was potential increase in the size of that cyst. Her lipase is normal today. Repeat CT scan shows enlargement of the cyst even greater than what it was 2 days ago. Her pain is improved with medications. I do feel the patient requires transfer for further GI management. Care turned over to Dr. Kraus to follow-up and disposition. Dr. Kraus: Care of patient is signed out to me by daytime physician. Independent review of patient and chart performed by myself. CT shows enlarging cyst with vascular involvement. Wall contacts liver at several places. Sterility indeterminate on imaging. Recommended considering referral for drainage. Patient required numerous doses of IV pain medications for control. Patient was previously seen at [facility], but unfortunately [facility] did not have any open beds. She was accepted at [facility] for transfer for higher level of care. Discharge Plan Departure Patient Disposition: [facility] Clinical Impression: Pancreatic cyst Prescriptions: No Action ondansetron 4 mg tablet,disintegrating 4 mg PO Q8H PRN (Reason: nausea and vomiting) Qty: 14 0RF amlodipine 5 mg tablet 5 mg PO DAILY Qty: 90 1RF famotidine [Pepcid AC] 10 mg tablet 10 mg PO DAILY meloxicam 7.5 mg tablet See Rx Instructions PO DAILY Qty: 90 1RF Rx Instructions: t1-2 tabs po daily rosuvastatin 10 mg tablet 10 mg PO DAILY Qty: 90 3RF losartan 100 mg tablet 100 mg PO DAILY Qty: 90 3RF multivit with min-folic acid [Centrum Adults] PO Referrals: Ramiro Cardona MD [Primary Care Provider] -
[2024-07-24 14:35] LABS: Hematocrit 37.6 % (36-46); Hemoglobin 12.5 g/dL (12.0-16.0); Mean Corpuscular HGB Conc 33.1 % (30-36); Mean Corpuscular Hemoglobin 29.5 PG (26-34); Platelet Count 604 X10^3/uL (150-400); Red Blood Cell Count 4.23 X10^6/uL (4.0-5.2); Red Cell Distribution Width 15.1 % (11.6-14.8); White Blood Cell Count 25.8 X10^3/uL (4.5-11.0)
[2024-07-24 14:36] LABS: Add Manual Diff / Slide Review YES
[2024-07-24 14:43] LABS: INR 1.7 (0.9-1.3); Prothrombin Time 18.6 SECONDS (9.4-12.5)
[2024-07-24 14:48] LABS: Lipase 203 U/L (23-300)
[2024-07-24 14:49] LABS: Alanine Aminotransferase 16 IU/L (<35); Albumin 3.7 g/dL (3.5-5.0); Albumin Globulin Ratio 0.9 (1.0-2.8); Alkaline Phosphatase 146 U/L (38-126); Aspartate Aminotransferase 23 IU/L (14-36); BUN Creatinine Ratio 12.5 (6-22); Bilirubin Total 0.8 mg/dL (0.2-1.3); Blood Urea Nitrogen 5 mg/dL (7-17); Calcium 10.6 mg/dL (8.4-10.2); Carbon Dioxide 15 mmol/L (22-32); Chloride 103 mmol/L (98-107); Estimated Glomerular Filt Rate > 60 mL/min (>60); Globulin 4.3 g/dL (1.7-4.1); Glucose 117 mg/dL (70-100); HEMOLYSIS < 15 (0-50); Neutrophils Absolute Manual 20124 /uL (3000-5900); Potassium 3.7 mmol/L (3.4-5.1); Sodium 134 mmol/L (137-145); Total Cells Counted 100
[2024-07-24 14:50] LABS: RBC Morphology Normal Morphology
[2024-07-24 14:53] LABS: PTT Partial Thromboplastin Tim 39 SECONDS (25.1-36.5)
[2024-07-24] MEDS: PANTOPRAZOLE 40 MG VIAL 80 MG IV (14:53)
[2024-07-24] MEDS: ONDANSETRON 4 MG/2 ML INJ IV (14:54)
[2024-07-24] MEDS: HYDROMORPHONE 1 MG INJ IV ×2 (14:54→22:12)
[2024-07-24 15:57] LABS: Appearance Urine UA CLEAR; Bilirubin Urine UA 2+ (NEGATIVE); Color Urine UA YELLOW; Glucose Urine UA NEGATIVE (Negative); Ketones Urine UA 3+ (NEGATIVE); Leukocyte Esterase Urine UA NEGATIVE (NEGATIVE); Nitrite Urine UA NEGATIVE (Negative); Occult Blood Urine UA TRACE-INTACT (Negative); Protein Urine UA 2+ (Negative); Specific Gravity Urine UA >=1.030 (1.000-1.035)
--- NOTE | 2024-07-24 16:03 | DI.CT.S_ITS ---
PROCEDURE: CT ABDOMEN PELVIS W CON INDICATIONS: History of pancreatitis, known cyst, worsening abdominal krishna TECHNIQUE: After the administration of intravenous contrast, axial sections acquired from the lung bases to the pubic symphysis. Coronal and sagittal reformats were performed. For radiation dose reduction, the following was used: automated exposure control, adjustment of mA and/or kV according to patient size. COMPARISON: [facility], CT, CT ABDOMEN PELVIS WITH CONTRAST, 07/12/2024, 12:01. [facility], CT, CT ABDOMEN PELVIS W CON, 11/07/2023, 11:20. [facility], CT, CT ABDOMEN PANCREATIC PROTOCOL, 07/22/2024, 16:42. FINDINGS: Image quality: Diagnostic Lower chest: Unremarkable lung bases. Moderate hiatal hernia. Liver: Unremarkable Gallbladder and biliary system: Sludge filled. No biliary ductal dilation. Pancreas: Multiloculated cystic mass measuring up to 6.5 x 6 cm, continued increase in size since 10/18/2023, 07/12/2024, and 07/22/2024. Surrounding edematous fat stranding is present. This occludes the SMV and portal confluence. This contacts the common femoral artery about 180?, and partially encases the SMA (greater than 180?) There is adjacent wall thickening, likely reactive in inflammatory of the duodenum. The medial margin of the lesion contacts the liver at the fady hepatis and caudate lobe. Spleen: Nonenlarged Adrenals: No discrete nodules Kidneys: No solid mass. No hydronephrosis. Vessels and lymph nodes: No abdominal aortic aneurysm. No pathologic lymph nodes by size criteria. Numerous portal venous varices. Bowel and peritoneum: No drainable ascites elsewhere. No small bowel obstruction. Body wall: Unremarkable Pelvis: IUD in place. Adnexal structures are unremarkable on limited CT evaluation. Bladder is unremarkable, under distended. Bones: Degenerative changes, mild. IMPRESSION: Continued increase in size of complex multiloculated cystic lesion centered in the pancreas, with vascular involvement as above. This also contacts the medial margin of the liver at multiple locations. Increase in size is seen on multiple studies described above, highly concerning. Sterility is indeterminate on imaging. Consider referral for drainage. This may be related to pancreatitis given original CT findings on 11/07/2023, though a cystic malignancy is possible. 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 Other findings above. Dictated by: Joel Benavides M.D. on 07/24/2024 at 17:12 Approved by: Joel Benavides M.D. on 07/24/2024 at 17:21
[2024-07-24 16:12] LABS: Ictotest Urine Negative (Negative); RBC Urine 0-1/HPF (0-5/HPF); Urine Volume 10mL (spun); WBC Urine 1-5/HPF (0-5/HPF)
[2024-07-24 16:13] LABS: Bacteria Urine Many (>30); Culture Indicated Urine Cult Not Indicated; Hyaline Casts Urine 5-10/LPF; Squamous Epithelial Cell Urine 5-10 /HPF (0-5/HPF)
[2024-07-24] MEDS: SODIUM CHLORIDE 0.9% 1,000 ML 125 ML IV (18:27)
[2024-07-24] MEDS: HYDROMORPHONE 0.5 MG INJ IV ×2 (18:27→21:02)
[2024-07-24] MEDS: ONDANSETRON 4 MG ODT SL (21:02)
--- NOTE | 2024-07-24 22:18 | PC.NURSE ---
Report given/ care transferred to [facility] transport team
== END 2024-07-24 22:30 | disposition short-term general hospital (02) ==
PROVIDERS: Emergency Provider Emergency Medicine; PCP Family Medicine
DX: K86.2 Cyst of pancreas (principal); R10.84 Generalized abdominal pain; K92.0 Hematemesis; R00.0 Tachycardia, unspecified
CPT/HCPCS: 36415; 74177; 80053; 81001; 81003; 81025; 83690; 85007; 85025; 85610; 85730; 86850; 86900; 86901; 93005; 96361; 96374; 96375; 96376; 99284; J1171; J2405; J2470; Q9967

== ENCOUNTER → 2024-09-22 16:51 | Outpatient (CLI) | payer OTHER, SELFPAY ==
[2024-08-29 12:16] VITALS: BMI 20.7
[2024-09-22 17:17] LABS: Add Manual Diff / Slide Review NO; Basophils Absolute Auto 100 /uL (0-100); Basophils Percent Auto 1.1 % (0-2); Eosinophils Absolute Auto 200 /uL (0-450); Eosinophils Percent Auto 3.3 % (2-4); Hematocrit 44.3 % (36-46); Hemoglobin 14.5 g/dL (12.0-16.0); Lymphocytes Absolute Auto 3000 /uL (1100-4500); Lymphocytes Percent Auto 42.5 % (25-40); Mean Corpuscular HGB Conc 32.7 % (30-36); Mean Corpuscular Volume 88.6 fL (80-100); Monocytes Absolute Auto 400 /uL (0-900); Monocytes Percent Auto 6.2 % (3-14); Neutrophils Absolute Auto 3300 /uL (1500-7000); Neutrophils Percent Auto 46.9 % (50-75); Platelet Count 136 X10^3/uL (150-400); Red Cell Distribution Width 16.2 % (11.6-14.8); White Blood Cell Count 7.1 X10^3/uL (4.5-11.0)
[2024-09-22 17:30] LABS: Alanine Aminotransferase 18 IU/L (<35); Albumin 3.7 g/dL (3.5-5.0); Albumin Globulin Ratio 1.2 (1.0-2.8); Alkaline Phosphatase 75 U/L (38-126); Aspartate Aminotransferase 31 IU/L (14-36); BUN Creatinine Ratio 15.7 (6-22); Bilirubin Total 0.6 mg/dL (0.2-1.3); Bilirubin Unconjugated 0.5 mg/dL (0.0-1.1); Blood Urea Nitrogen 11 mg/dL (7-17); Calcium 9.4 mg/dL (8.4-10.2); Carbon Dioxide 28 mmol/L (22-32); Chloride 102 mmol/L (98-107); Estimated Glomerular Filt Rate > 60 mL/min (>60); Glucose 105 mg/dL (70-100); HEMOLYSIS < 15 (0-50); Lipase 148 U/L (23-300); Magnesium 1.3 mg/dL (1.6-2.3); Potassium 3.2 mmol/L (3.4-5.1); Sodium 138 mmol/L (137-145); Total Protein 6.7 g/dL (6.3-8.2)
== END ==
PROVIDERS: PCP Family Medicine; Referring Provider Family Medicine; Visit Provider Family Medicine
DX: E87.6 Hypokalemia (principal); E83.42 Hypomagnesemia; R10.13 Epigastric pain; F10.10 Alcohol abuse, uncomplicated; K85.20 Alcohol induced acute pancreatitis without necrosis or infection; K76.6 Portal hypertension; I10 Essential (primary) hypertension; E78.2 Mixed hyperlipidemia; K70.30 Alcoholic cirrhosis of liver without ascites; I85.10 Secondary esophageal varices without bleeding
CPT/HCPCS: 36415; 80048; 80076; 83690; 83735; 85025

== ENCOUNTER → 2024-10-28 11:51 | Outpatient (CLI) | payer OTHER, SELFPAY ==
[2024-08-29 12:16] VITALS: BMI 20.7
--- NOTE | 2024-10-28 11:52 | DI.RAD.S_ITS ---
PROCEDURE: XR KNEE LT 3V INDICATIONS: Bilateral knee numbness/weakness/pain TECHNIQUE: 3 views of the knee were acquired. COMPARISON: None. FINDINGS: Bones: There are no osseous abnormalities. Joints: The tibialfemoral and patellofemoral joints show mild degeneration. Small effusion Soft tissues: Normal IMPRESSION: Mild degeneration Dictated by: Da Garzon M.D. on 10/29/2024 at 11:13 Approved by: Da Garzon M.D. on 10/29/2024 at 11:13
--- NOTE | 2024-10-28 11:52 | DI.RAD.S_ITS ---
PROCEDURE: XR KNEE RT 3V INDICATIONS: Bilateral knee numbness/weakness/pain TECHNIQUE: 3 views of the knee were acquired. COMPARISON: None. FINDINGS: Bones: There are no osseous abnormalities. Joints: The tibialfemoral and patellofemoral joints show mild degeneration. Soft tissues: Normal IMPRESSION: Mild degeneration. S. Dictated by: Da Garzon M.D. on 10/29/2024 at 11:11 Approved by: Da Garzon M.D. on 10/29/2024 at 11:12
== END ==
LOC: LAB 11:52
PROVIDERS: PCP Family Medicine; Referring Provider Physician Assistant; Visit Provider Physician Assistant
DX: E53.8 Deficiency of other specified B group vitamins (principal); M25.562 Pain in left knee; M25.561 Pain in right knee; M17.0 Bilateral primary osteoarthritis of knee
CPT/HCPCS: 73562

== ENCOUNTER → 2024-11-05 11:15 | Outpatient (CLI) | payer OTHER, SELFPAY ==
[2024-08-29 12:16] VITALS: BMI 20.7
[2024-11-05 12:26] LABS: BUN Creatinine Ratio 10.5 (6-22); Blood Urea Nitrogen 6 mg/dL (7-17); Calcium 9.2 mg/dL (8.4-10.2); Carbon Dioxide 19 mmol/L (22-32); Chloride 106 mmol/L (98-107); Estimated Glomerular Filt Rate > 60 mL/min (>60); Glucose 106 mg/dL (70-100); HEMOLYSIS < 15 (0-50); Magnesium 1.4 mg/dL (1.6-2.3); Potassium 2.9 mmol/L (3.4-5.1); Sodium 140 mmol/L (137-145)
[2024-11-05 13:10] LABS: Vitamin B12 271 pg/mL (239-931)
== END ==
PROVIDERS: PCP Family Medicine; Referring Provider Physician Assistant; Visit Provider Physician Assistant
DX: E53.8 Deficiency of other specified B group vitamins (principal); E87.6 Hypokalemia; R79.0 Abnormal level of blood mineral
CPT/HCPCS: 36415; 80048; 82607; 83735

== ENCOUNTER → 2024-12-08 16:47 | Outpatient (CLI) | payer OTHER, SELFPAY ==
[2024-08-29 12:16] VITALS: BMI 20.7
== END ==
PROVIDERS: Family Provider Family Medicine; PCP Family Medicine; Visit Provider Registered Nurse
DX: R30.0 Dysuria (principal)
CPT/HCPCS: 87086

== ENCOUNTER → 2024-12-30 14:38 | Outpatient (CLI) | payer OTHER, SELFPAY ==
[2024-08-29 12:16] VITALS: BMI 20.7
[2024-12-30 16:05] LABS: Add Manual Diff / Slide Review NO; Alanine Aminotransferase 16 IU/L (<35); Albumin 3.8 g/dL (3.5-5.0); Albumin Globulin Ratio 1.3 (1.0-2.8); Alkaline Phosphatase 114 U/L (38-126); Aspartate Aminotransferase 32 IU/L (14-36); BUN Creatinine Ratio 8.7 (6-22); Basophils Absolute Auto 100 /uL (0-100); Basophils Percent Auto 0.8 % (0-2); Bilirubin Total 0.7 mg/dL (0.2-1.3); Blood Urea Nitrogen 4 mg/dL (7-17); Calcium 9.2 mg/dL (8.4-10.2); Carbon Dioxide 22 mmol/L (22-32); Chloride 107 mmol/L (98-107); Eosinophils Absolute Auto 200 /uL (0-450); Estimated Glomerular Filt Rate > 60 mL/min (>60); Globulin 2.9 g/dL (1.7-4.1); Glucose 77 mg/dL (70-99); HEMOLYSIS < 15 (0-50); Hematocrit 50.4 % (36-46); Lymphocytes Absolute Auto 3000 /uL (1100-4500); Lymphocytes Percent Auto 31.7 % (25-40); Magnesium 1.4 mg/dL (1.6-2.3); Mean Corpuscular HGB Conc 33.7 % (30-36); Mean Corpuscular Hemoglobin 33.7 PG (26-34); Mean Corpuscular Volume 99.8 fL (80-100); Monocytes Absolute Auto 700 /uL (0-900); Monocytes Percent Auto 7.1 % (3-14); Neutrophils Absolute Auto 5600 /uL (1500-7000); Neutrophils Percent Auto 58.4 % (50-75); Platelet Count 204 X10^3/uL (150-400); Potassium 3.2 mmol/L (3.4-5.1); Red Blood Cell Count 5.05 X10^6/uL (4.0-5.2); Red Cell Distribution Width 20.5 % (11.6-14.8); Sodium 141 mmol/L (137-145); Total Protein 6.7 g/dL (6.3-8.2); White Blood Cell Count 9.6 X10^3/uL (4.5-11.0)
[2024-12-30 16:39] LABS: TSH w/ Reflex to FT4 0.99 uIU/mL (0.47-4.68)
[2024-12-30 16:42] LABS: Anisocytosis 2+
== END ==
PROVIDERS: Family Provider Family Medicine; PCP Family Medicine; Referring Provider Family Medicine; Visit Provider Family Medicine
DX: I85.00 Esophageal varices without bleeding (principal); K76.6 Portal hypertension; K74.60 Unspecified cirrhosis of liver; E78.5 Hyperlipidemia, unspecified; E87.6 Hypokalemia
CPT/HCPCS: 80053; 83735; 84443; 85025

== ENCOUNTER → 2025-01-01 11:29 | Outpatient (CLI) | payer OTHER, SELFPAY ==
[2024-08-29 12:16] VITALS: BMI 20.7
== END ==
PROVIDERS: Family Provider Family Medicine; PCP Family Medicine; Referring Provider Family Medicine; Visit Provider Family Medicine
DX: R20.0 Anesthesia of skin (principal)
CPT/HCPCS: 95886; 95912

== ENCOUNTER → 2025-01-27 15:01 | Outpatient (CLI) | payer OTHER, SELFPAY ==
[2024-08-29 12:16] VITALS: BMI 20.7
== END ==
PROVIDERS: Family Provider Family Medicine; PCP Family Medicine; Visit Provider Physician Assistant
DX: R30.0 Dysuria (principal); Z11.3 Encounter for screening for infections with a predominantly sexual mode of transmission; N89.8 Other specified noninflammatory disorders of vagina
CPT/HCPCS: 87077; 87086; 87186; 87210

== ENCOUNTER → 2025-03-06 13:31 | Outpatient (CLI) | payer OTHER, SELFPAY ==
[2024-08-29 12:16] VITALS: BMI 20.7
--- NOTE | 2025-03-06 13:31 | DI.US.S_ITS ---
PROCEDURE: US PELVIC COMPLETE INDICATIONS: Bleeding check IUD placement TECHNIQUE: Real-time scanning was performed of the pelvic organs, with image documentation. Additional endovaginal scanning was necessary due to incomplete visualization of the adnexal and endometrial structures by transabdominal scanning. COMPARISON: [facility], US, US PELVIC COMPLETE, 05/23/2023, 12:58. FINDINGS: Uterus: Uterus is retroverted and normal in size at 6.5 x 3.2 x 5.6 cm. The myometrium is heterogeneous with fibroids. The endometrium measures 1.8 mm combined thickness. Intrauterine device is low with distal aspect 2.6 cm away from the fundus. Several uterine fibroids, for example a right intramural fibroid measuring 1.6 x 1.4 x 1.1 cm, a mid anterior intramural fibroid measuring 1.6 x 0.9 x 1.0 cm and a right anterior intramural fibroid measuring 1.6 x 1.1 x 0.9 cm. Ovaries: The right ovary measures 2.1 x 3.9 x 2.4 cm, with a calculated ovarian volume of 10.4 cc. Right ovarian simple cyst measuring 2.0 x 1.5 x 1.9 cm. The left ovary measures 4.0 x 1.9 x 2.6 cm, with a calculated ovarian volume of 10.5 cc. Left ovarian simple cyst measuring 1.9 x 2.2 x 1.6 cm. Left ovarian follicle measuring 1.5 cm. Less than 12 follicles can be seen in each ovary. No adnexal masses are seen. Other: No pathologic free abdominal or pelvic fluid. IMPRESSION: Intrauterine device is low with distal aspect 2.6 cm away from the fundal endometrium. Uterine fibroids as described above. Bilateral simple renal cysts measuring 2.0 cm on the right and 2.2 cm on the left. We strive to produce accurate, complete, and clear reports of imaging services. To assist us in improving patient care, this report was composed using standard report templates and voice recognition software. Therefore, it may contain abnormal punctuation, insertions and/or omissions. Occasional wrong-word or sound-alike substitutions may occur. Though we review the report and make efforts to correct it, we do recommend that the report be read carefully in proper context to recognize any text inaccuracies. Dictated by: Haseeb Owen M.D. on 03/06/2025 at 14:40 Approved by: Haseeb Owen M.D. on 03/06/2025 at 14:47
== END ==
LOC: US 13:31
PROVIDERS: PCP Family Medicine; Referring Provider Student in an Organized Health Care Education/Training Program; Visit Provider Student in an Organized Health Care Education/Training Program
DX: N92.1 Excessive and frequent menstruation with irregular cycle (principal); N83.291 Other ovarian cyst, right side; N83.292 Other ovarian cyst, left side; D25.1 Intramural leiomyoma of uterus; Z97.5 Presence of (intrauterine) contraceptive device
CPT/HCPCS: 76830; 76856

== ENCOUNTER → 2025-09-01 14:17 | Outpatient (CLI) | payer OTHER, SELFPAY ==
[2024-08-29 12:16] VITALS: BMI 20.7
== END ==
PROVIDERS: PCP Family Medicine; Visit Provider Physician Assistant
DX: R35.0 Frequency of micturition (principal); F10.90 Alcohol use, unspecified, uncomplicated; F32.A Depression, unspecified; R79.0 Abnormal level of blood mineral; Z72.0 Tobacco use
CPT/HCPCS: 87077; 87086; 87186

== ENCOUNTER → 2025-09-01 14:24 | Outpatient (CLI) | payer OTHER, SELFPAY ==
[2024-08-29 12:16] VITALS: BMI 20.7
[2025-09-01 15:06] LABS: Add Manual Diff / Slide Review NO; Hematocrit 46.3 % (36-46); Hemoglobin 15.6 g/dL (12.0-16.0); Lymphocytes Absolute Auto 2800 /uL (1100-4500); Mean Corpuscular HGB Conc 33.6 % (30-36); Mean Corpuscular Hemoglobin 33.7 PG (26-34); Mean Corpuscular Volume 100.2 fL (80-100); Platelet Count 178 X10^3/uL (150-400)
[2025-09-01 15:34] LABS: Alanine Aminotransferase 12 IU/L (<35); Albumin 3.9 g/dL (3.5-5.0); Albumin Globulin Ratio 1.2 (1.0-2.8); Alkaline Phosphatase 82 U/L (38-126); Blood Urea Nitrogen 8 mg/dL (7-17); Calcium 9.0 mg/dL (8.4-10.2); Carbon Dioxide 22 mmol/L (22-32); Chloride 108 mmol/L (98-107); Estimated Glomerular Filt Rate > 60 mL/min (>60); Globulin 3.2 g/dL (1.7-4.1); Glucose 87 mg/dL (70-99); HEMOLYSIS < 15 (0-50); Lipase 266 U/L (23-300); Magnesium 1.4 mg/dL (1.6-2.3); Potassium 3.5 mmol/L (3.4-5.1); Sodium 138 mmol/L (137-145); Total Protein 7.1 g/dL (6.3-8.2)
[2025-09-01 16:03] LABS: TSH w/ Reflex to FT4 1.59 uIU/mL (0.47-4.68)
[2025-09-01 16:22] LABS: Vitamin B12 217 pg/mL (239-931)
== END ==
PROVIDERS: PCP Family Medicine; Referring Provider Physician Assistant; Visit Provider Physician Assistant
DX: F10.90 Alcohol use, unspecified, uncomplicated (principal); F32.A Depression, unspecified; R79.0 Abnormal level of blood mineral; Z72.0 Tobacco use
CPT/HCPCS: 36415; 80053; 82607; 83690; 83735; 84443; 85025; 87086

== ENCOUNTER → 2025-09-01 15:36 | Outpatient (CLI) | payer OTHER, SELFPAY ==
[2024-08-29 12:16] VITALS: BMI 20.7
--- NOTE | 2025-09-01 15:37 | DI.MG.S_ITS ---
MM screening mammo BI: 09/01/2025. BI-RADS: 1 CLINICAL: 50-year old female for bilateral screening mammogram. Tyrer-Cuzick lifetime risk of 26.1%. Current reported family history of breast cancer: mother and maternal aunt. PRIOR EXAMS 06/10/2024, 11/30/2022, 08/10/2020, 01/17/2019, MAMMOGRAPHY TECHNIQUE: 2D and 3D (tomosynthesis) digital mammographic views obtained, with additional images as needed for full coverage. Current study was also evaluated with a Computer Aided Detection (CAD) system. DENSITY C. The breasts are heterogeneously dense, which may obscure small masses. MAMMOGRAPHY FINDINGS Bilateral: No suspicious mass, asymmetry, microcalcification, or other abnormality seen. IMPRESSION: * No evidence of malignancy. RECOMMENDATIONS Bilateral * According to the Tyrer-Cuzick Risk Assessment Model, based on the information provided your patient has a greater than 20% lifetime risk for developing breast cancer. Consider supplemental screening with breast MRI and participation in a high risk screening program. * Annual screening mammography. OVERALL ASSESSMENT CATEGORY BI-RADS-1: Negative. The [employer] recommends annual screening mammography beginning at age 40 for women with average risk of breast cancer. ELECTRONICALLY SIGNED: Homer Velez M.D. on 09/02/2025 at 01:39:58 PM PT Interpreting Station ID: [id number]
== END ==
PROVIDERS: PCP Family Medicine; Referring Provider Physician Assistant; Visit Provider Physician Assistant
DX: Z12.31 Encounter for screening mammogram for malignant neoplasm of breast (principal); R92.333 Mammographic heterogeneous density, bilateral breasts; Z80.3 Family history of malignant neoplasm of breast
CPT/HCPCS: 77063; 77067